=== PATIENT | female | born 1965 | race Caucasian/White ===

== ENCOUNTER 2017-11-04 12:08 | Emergency (ER) | payer BC, OTHER, SELFPAY ==
[2017-11-04] MEDS ORDERED: Ketorolac Tromethamine 30 MG/ML VIAL ONE (13:38)
--- NOTE | 2017-11-04 14:38 | RAD ---
4 VIEWS RIGHT KNEE: Date: 11/04/17 HISTORY: Pain. COMPARISON: 02/01/13. FINDINGS: Evidence of previous internal fixation hardware. Old, healed right femur fracture is noted. No signif icant joint effusion. Joint spaces are preserved. No fracture or malalignment. With regard to the hardware, no evidence of perihardware lucency. IMPRESSION: 1. Uncomplicated internal fixation hardware. 2. No fracture. POS: [facility]
== END 2017-11-04 14:15 | disposition home or self-care (01) ==
LOC: ERS 12:08
DX: M25.461 Effusion, right knee (principal); I48.91 Unspecified atrial fibrillation; J42 Unspecified chronic bronchitis; I45.6 Pre-excitation syndrome; F41.9 Anxiety disorder, unspecified; Z79.899 Other long term (current) drug therapy
CPT/HCPCS: 96372; J1885

== ENCOUNTER 2018-01-07 19:54 | Emergency (ER) | payer BC, OTHER, SELFPAY ==
[2018-01-07 20:42] LABS: #Basophils 0.1 thou/uL (0.0-0.2); #Lymphocytes 1.2 thou/uL (1.20-3.40); #Monocytes 0.5 thou/uL (0.11-0.59); #Neutrophils 2.7 thou/uL (1.40-6.50); %Basophils 1.4 % (0.0-1.0); %Lymphocytes 26.4 % (21.0-51.0); %Monocytes 10.8 % (0.0-10.0); %Neutrophils 60.4 % (42.0-75.0); Hemoglobin 16.3 g/dL (12.0-16.0); Mean Corpuscular Hemoglobin 36.1 pg (27.0-31.0); Mean Platelet Volume 7.7 fL (7.4-10.4); Platelet Count 136 thou/uL (130-400); RBC Distribution Width 11.9 % (11.5-14.5); Red Blood Cell (RBC) Count 4.52 mill/uL (4.20-5.40); White Blood Cell (WBC) Count 4.5 thou/uL (4.8-10.8)
[2018-01-07 20:58] LABS: ALT (SGPT) 69 U/L (8-55); AST (SGOT) 87 U/L (5-34); Acetaminophen Less than 6.0 mcg/mL (10.0-30.0); Albumin 3.9 g/dL (3.5-5.0); Alcohol 178 mg/dL (Less than 10); Alkaline Phosphatase 76 U/L (40-150); Anion Gap 17 mmol/L (10-20); BUN (Urea Nitrogen) 9 mg/dL (7.0-18.7); Bilirubin, Total 0.7 mg/dL (0.2-1.2); Calc. Creatinine Clearance 0 mL/min (70-130); Calcium 9.1 mg/dL (7.8-10.44); Carbon Dioxide 22 mmol/L (22-29); Chloride 109 mmol/L (98-107); Estimated GFR-MDRD 84; Globulin 3.2 g/dL (2.4-3.5); Glucose 155 mg/dL (70-105); Potassium 4.1 mmol/L (3.5-5.1); Protein, Total 7.1 g/dL (6.0-8.3); Salicylate Less than 8.0 mg/dL (15.0-30.0); Sodium 144 mmol/L (136-145)
[2018-01-07 21:19] LABS: Magnesium 1.9 mg/dL (1.6-2.6); Phosphorus 2.6 mg/dL (2.3-4.7)
[2018-01-07 23:35] LABS: Bilirubin Negative (Negative); Blood, Urine Negative (Negative); Clarity CLEAR (Clear); Glucose, Urine (Dipstick) Negative (Negative); Leukocyte Negative (Negative); Nitrite Negative (Negative); Protein, Urine (Dipstick) Negative (Neg-Trace); Specific Gravity, Urine 1.013 (1.002-1.036)
[2018-01-07 23:42] LABS: Anion Gap 14 mmol/L (10-20); BUN (Urea Nitrogen) 8 mg/dL (7.0-18.7); Calc. Creatinine Clearance 0 mL/min (70-130); Calcium 8.6 mg/dL (7.8-10.44); Carbon Dioxide 24 mmol/L (22-29); Chloride 111 mmol/L (98-107); Estimated GFR-MDRD Greater than 90; Glucose 134 mg/dL (70-105); Magnesium 1.7 mg/dL (1.6-2.6); Potassium 4.1 mmol/L (3.5-5.1); Sodium 145 mmol/L (136-145)
[2018-01-08 02:47] LABS: Amphetamine Not Detected (NotDetected); Barbiturates Screen Not Detected (NotDetected); Benzodiazepine Screen Not Detected (NotDetected); Cocaine Metabolite Screen Not Detected (NotDetected); Medtox Control Line Valid? VALID (VALID); Medtox Reader # READER 4; Methadone Not Detected (NotDetected); Methamphetamine Not Detected (NotDetected); Opiate Screen Not Detected (NotDetected); Oxycodone Screen Not Detected (NotDetected); Phencyclidine (PCP) Not Detected (NotDetected); THC/Cannabinoid Screen Not Detected (NotDetected); Tricyclic Screen Not Detected (NotDetected)
--- NOTE | 2018-02-02 15:56 | EKG ---
Test Reason : SI Blood Pressure : / mmHG Vent. Rate : 120 BPM Atrial Rate : 120 BPM P-R Int : 160 ms QRS Dur : 070 ms QT Int : 324 ms P-R-T Axes : 056 014 016 degrees QTc Int : 457 ms Sinus tachycardia Otherwise normal ECG Confirmed by JOVANNI TOLEDO, KADEN ([id number]), acquisitions editor ROXANN GODOY ([id number]) on 02/02/2018 3:56:08 PM Referred By: Confirmed By:KADEN BAIG MD
--- NOTE | 2018-02-02 15:56 | EKG ---
Test Reason : Blood Pressure : / mmHG Vent. Rate : 118 BPM Atrial Rate : 118 BPM P-R Int : 148 ms QRS Dur : 074 ms QT Int : 332 ms P-R-T Axes : 057 013 022 degrees QTc Int : 465 ms Sinus tachycardia Otherwise normal ECG Confirmed by JOVANNI TOLEDO, KADEN ([id number]), research editor ROXANN GODOY ([id number]) on 02/02/2018 3:56:06 PM Referred By: Confirmed By:KADEN BAIG MD
== END 2018-01-09 04:41 ==
LOC: ERS 19:54
DX: R45.851 Suicidal ideations (principal); I48.91 Unspecified atrial fibrillation; F41.9 Anxiety disorder, unspecified; Z79.899 Other long term (current) drug therapy
CPT/HCPCS: 36415; 51701; 80053; 80306; 80307; 81003; 82550; 83735; 84100; 84443; 85025; 93005; 96360; 96361; A4353

== ENCOUNTER 2018-11-27 04:04 | Inpatient (IN) | payer BC, OTHER ==
[2018-11-27] MEDS ORDERED: Magnesium 2 GM/50 ML BAG (IN WATER) ONE (04:20)
[2018-11-27] MEDS ORDERED: methylPREDNISolone Sod Succ/PF 125 MG/2 ML VIAL ONE (04:20)
[2018-11-27] MEDS ORDERED: methylPREDNISolone Sod Succ/PF 125 MG/2 ML VIAL IVP SCH (04:30)
[2018-11-27] MEDS ORDERED: Magnesium 2 GM/50 ML 2 GM in Premix Bag 1 BAG IVPB SCH (04:30)
[2018-11-27 04:36] LABS: #Basophils 0.1 thou/uL (0.0-0.2); #Eosinphils 0.6 thou/uL (0.0-0.7); #Lymphocytes 2.1 thou/uL (1.20-3.40); #Monocytes 1.1 thou/uL (0.11-0.59); #Neutrophils 5.7 thou/uL (1.40-6.50); %Basophils 0.6 % (0.0-1.0); %Eosinophils 6.1 % (0.0-10.0); %Monocytes 11.4 % (0.0-10.0); %Neutrophils 59.9 % (42.0-75.0); Hemoglobin 17.6 g/dL (12.0-16.0); Mean Corpuscular HGB CONC 35.5 g/dL (32.0-36.0); Mean Corpuscular Hemoglobin 35.3 pg (27.0-31.0); Mean Corpuscular Volume 99.6 fL (78.0-98.0); Mean Platelet Volume 7.6 fL (7.4-10.4); Platelet Count 178 thou/uL (130-400); RBC Distribution Width 12.2 % (11.5-14.5); Red Blood Cell (RBC) Count 4.99 mill/uL (4.20-5.40); White Blood Cell (WBC) Count 9.5 thou/uL (4.8-10.8)
[2018-11-27 04:56] LABS: CO2 Tension 57.3 mmHg (35.0-45.0)
[2018-11-27 04:58] LABS: Actual Bicarbonate (HCO3a) 24.4 mEq/L (22-28); Base Excess (BEa) -0.2 mEq/L (-2.0 to +3.0); Hemoglobin (Hb) 17.8 g/dL (12.0-16.0); O2 Tension (PaO2) 57.3 mmHg (80.0-100.0)
[2018-11-27 04:59] LABS: Analyzer IN Cardio ER; Calcium, Ionized 1.14 mmol/L (1.12-1.30); Carboxyhemoglobin (COHb) 0.5 gm% (0.0-3.0); Puncture Site LBA
[2018-11-27 04:59] LABS: ALT (SGPT) 38 U/L (8-55); AST (SGOT) 33 U/L (5-34); Albumin 3.8 g/dL (3.5-5.0); Alkaline Phosphatase 87 U/L (40-150); Anion Gap 15 mmol/L (10-20); BUN (Urea Nitrogen) 6 mg/dL (9.8-20.1); Bilirubin, Total 1.4 mg/dL (0.2-1.2); Calc. Creatinine Clearance 0 mL/min (70-130); Calcium 10.2 mg/dL (7.8-10.44); Carbon Dioxide 24 mmol/L (22-29); Chloride 104 mmol/L (98-107); Estimated GFR-MDRD 84; Globulin 3.4 g/dL (2.4-3.5); Glucose 132 mg/dL (70-105); Magnesium 1.3 mg/dL (1.6-2.6); Protein, Total 7.2 g/dL (6.0-8.3); Sodium 139 mmol/L (136-145)
[2018-11-27 05:00] LABS: ALV-art Gradient 70.715 (0-20)
[2018-11-27] MEDS ORDERED: Terbutaline Sulfate 1 MG/ML VIAL SC SCH (05:00)
[2018-11-27] MEDS ORDERED: Terbutaline Sulfate 1 MG/ML VIAL ONE (05:26)
[2018-11-27] MEDS ORDERED: Oseltamivir 75 MG CAP PO SCH (05:45)
[2018-11-27] MEDS ORDERED: cefTRIAXone\\ROCEPHIN 1 GM VIAL ONE (06:33)
[2018-11-27] MEDS ORDERED: Albuterol Sulfate 2.5 mg/3 ml Neb ONE (06:37)
[2018-11-27] MEDS ORDERED: Albuterol Sulfate 2.5 mg/0.5 ml Neb ONE (06:37)
--- NOTE | 2018-11-27 08:03 | RAD ---
AP CHEST: History: Shortness of breath. Date: 11-27-18 Comparison: 01-27-17 FINDINGS: There is mild cardiomegaly. Mild pulmonary vascular congestion seen. No evidence of effusions, pneumo maryuri, or pneumothorax seen. IMPRESSION: Unremarkable AP view chest. POS: [facility]
[2018-11-27 08:46] LABS: Lactic Acid 4.6 mmol/L (0.5-2.2)
[2018-11-27] MEDS ORDERED: Acetaminophen 650 MG Suppository PR PRN (08:53)
[2018-11-27] MEDS ORDERED: Acetaminophen 325 MG TAB PO PRN (08:53)
[2018-11-27 09:00] VITALS: BMI 31.6
[2018-11-27] MEDS: Azithromycin 500 MG in Sodium Chloride 0.9% 250 ML 250 ML IVPB SCH (09:36)
[2018-11-27] MEDS: Enoxaparin Sodium 40 MG/0.4 ML SYRINGE SC SCH (09:36)
--- NOTE | 2018-11-27 13:28 | HP ---
PRIMARY CARE PROVIDER: Dr. Quintin Flynn. CHIEF COMPLAINT: Shortness of breath. HISTORY OF PRESENT ILLNESS: Ms. Fermin is a pleasant 53-year-old lady, who was seen at [facility] on November 27, 2018. She has a history of asthma. She reports that she started having shortness of breath over the last couple of days. She reports chest tightness. She reports nausea, but no vomiting or diarrhea. She reports cough that is productive of whitish sputum. She took six DuoNebs at home, with total relief of symptoms. She therefore came to the emergency room. She also describes wheezing. REVIEW OF SYSTEMS: All other systems reviewed and found to be negative. PAST MEDICAL HISTORY: Chronic bronchitis versus asthma versus chronic obstructive pulmonary disease, Bodne-Txjvjuagk-Cqnwd syndrome, and atrial fibrillation, status post ablation. PAST SURGICAL HISTORY: Ablation for Ssxwg-Tvuuwpcce-Alcea, hysterectomy, orthopedic surgery of the right leg, left oophorectomy, and peritonitis. PSYCHIATRIC HISTORY: Anxiety. SOCIAL HISTORY: The patient reports drinking one or two alcoholic drinks a day. She denies recreational drug use or tobacco use. FAMILY HISTORY: Sister with asthma, mother with lung cancer. ALLERGIES: ADHESIVE TAPE, CODEINE SULFATE, LATEX, LEVOFLOXACIN, MORPHINE, AND SULFA. CURRENT MEDICATIONS: Breo Ellipta 100/25 mcg one puff as needed, Singulair 10 mg daily, ipratropium inhalation as needed, and albuterol inhalation as needed. PHYSICAL EXAMINATION: GENERAL: On examination, Ms. Fermin is awake and alert, not in acute distress. VITAL SIGNS: Blood pressure is 111/63, pulse 114, respiratory rate 17, and oxygen saturation 98% on BiPAP. She is afebrile. EYES: No scleral icterus, no conjunctival pallor. ENT: Moist mucosal membranes, no oropharyngeal erythema or exudates. NECK: Supple, nontender, trachea is midline. RESPIRATORY: Accessory muscles of breathing are active. Chest wall movements are symmetric bilaterally. Lung examination reveals diffuse expiratory wheeze. CARDIOVASCULAR: S1 and S2 are heard, tachycardic and regular. Peripheral pulses palpable. No carotid bruit. No pericardial rub. ABDOMEN: Soft, nontender, bowel sounds heard, no hepatomegaly, no splenomegaly. NEUROLOGIC: Cranial nerves 2 through 12 intact, deep tendon reflexes 2+. MUSCULOSKELETAL: Power is 5/5 in all four extremities. SKIN: No rashes or subcutaneous nodules. LYMPHATIC: No cervical lymphadenopathy. PSYCHIATRIC: Normal mood, normal affect, the patient is oriented to person, place, and time. LABORATORY DATA: Ms. Fermin's labs and investigations were reviewed. I reviewed her electrocardiogram, which shows sinus tachycardia, no ST changes to suggest an acute coronary syndrome. I also reviewed her chest x-ray, which does not show any pulmonary infiltrates. She has normal white count, elevated hemoglobin of 17.6, normal platelet count, normal sodium, normal potassium, normal chloride, normal creatinine, elevated lactic acid level of 2.5, decreased magnesium level of 1.3, elevated total bilirubin of 1.4, otherwise unremarkable comprehensive metabolic profile and normal troponin I of 0.017. Arterial blood gases show a pH 7.40, pCO2 of 57.3, and pO2 of 57.3. ASSESSMENT AND PLAN: Ms. Fermin is a pleasant 53-year-old lady, who was seen at [facility] on November 27, 2018. Her problem list includes: 1. Acute hypoxic and hypercapnic respiratory failure: Most likely secondary to asthma exacerbation versus chronic obstructive pulmonary disease exacerbation. She will be admitted to the hospital for further management including oxygen, steroids, bronchodilators, and antibiotics. She had a negative influenza test in the emergency room. However, emergency room physician felt that this could be a false negative and has initiated the patient on Tamiflu, which I will continue. We will try to wean her off of BiPAP. Pulmonology Service will be consulted for opinion and help with further management. 2. History of atrial fibrillation: The patient is currently in sinus rhythm, with sinus tachycardia. 3. Hypomagnesemia: The patient has received magnesium supplementation. We will recheck magnesium level. 4. Lactic acidosis: Likely secondary to excessive breathing muscle use. We will recheck. 5. Daily alcohol use: We will watch for symptoms of alcohol withdrawal. We will start patient on ASE protocol. Many thanks for allowing me to participate in your patient's care. Please feel free to contact me with any questions or concerns. LEVEL OF RISK: High. LEVEL OF COMPLEXITY: High. Job ID: [id number]
[2018-11-27] MEDS: Acetaminophen 325 MG TAB PO SCH ×2 (17:26→20:46)
[2018-11-27] MEDS: Oseltamivir 75 MG CAP PO SCH (20:46)
[2018-11-27] MEDS: Temazepam 15 MG CAP PO PRN (22:31)
--- NOTE | 2018-11-28 00:10 | CON ---
DATE OF CONSULTATION: 11/27/2018 HISTORY OF PRESENT ILLNESS: Ms. Fermin is a 53-year-old female, seen by Dr. Juan in the past and she has long history of asthma. She presents with several days of shortness of breath. She is unclear what the trigger was. She denies having high fever, purulent sputum, or hemoptysis. PAST MEDICAL HISTORY: Remarkable for; 1. Reactive airways. 2. WPW. 3. Atrial fibrillation with history of an ablation. 4. Status post hysterectomy. 5. History of right lower extremity surgery in the past. 6. History of peritonitis. 7. History of an oophorectomy. SOCIAL HISTORY: She drinks in the evening. She does not use drugs, she does not smoke. FAMILY HISTORY: With asthma. Her mother of lung cancer. Now she has been told she has adult-onset asthma. ALLERGIES: SHE REPORTS ALLERGIES TO TAPE, CODEINE, LATEX, LEVAQUIN, MORPHINE, AND SULFA. MEDICATIONS: Prior to admission, she was on Breo, Singulair, and she has a nebulizer at home. She says she was on Spiriva, but this was stopped early last year. REVIEW OF SYSTEMS: Ten point review of systems completed, otherwise negative. PHYSICAL EXAMINATION: GENERAL: She says she is feeling better, but she is not well. VITAL SIGNS: She got a temp of 99.6 at noon, heart rate 110 to 120, respiratory rate 20s, oximetry is 95% to 97% on 3 L, blood pressure 129/68. HEENT: Head and neck exam is unremarkable. She has no cervical lymphadenopathy. NECK: Supple. LUNGS: Remarkable for diffuse wheezes. HEART: Regular rhythm. Rapid rate. No gallop. No murmur. ABDOMEN: Soft and nontender. No masses or organomegaly. EXTREMITIES: Without clubbing, cyanosis, or edema. Chest radiograph does not show any alveolar infiltrates suggestive of pneumonia. IMPRESSION: Asthma exacerbation. The trigger is unclear, although statistically it is likely to be a viral illness. She is complaining of chest pain with a deep breath and chest wall tenderness near costochondral margins. I suspect this is asthma triggered by viral illness with associated costochondritis. Tylenol was started. She will continue with her other medications, she will need to know whether or not she should restart Spiriva. This would not be unreasonable when she is going home, but she is getting nebulized treatments every 4 hours right now, so there is really no reason to add Spiriva. Antibiotic microbial therapy could be switched to p.o. antimicrobials in the morning. TIME SPENT: This was a 70-minute consult, with greater than 50% of time spent on the unit coordinating care. Job ID: [id number] MTDD
[2018-11-28] MEDS: Acetaminophen 325 MG TAB PO SCH ×6 (00:35→21:04)
[2018-11-28 04:33] LABS: #Lymphocytes 0.7 thou/uL (1.20-3.40); #Monocytes 0.4 thou/uL (0.11-0.59); #Neutrophils 9.6 thou/uL (1.40-6.50); %Basophils 0.2 % (0.0-1.0); %Eosinophils 0.1 % (0.0-10.0); %Lymphocytes 6.6 % (21.0-51.0); %Monocytes 3.8 % (0.0-10.0); %Neutrophils 89.3 % (42.0-75.0); Mean Corpuscular HGB CONC 35.2 g/dL (32.0-36.0); Mean Corpuscular Hemoglobin 35.5 pg (27.0-31.0); Mean Platelet Volume 8.6 fL (7.4-10.4); Platelet Count 150 thou/uL (130-400); RBC Distribution Width 12.1 % (11.5-14.5); Red Blood Cell (RBC) Count 4.49 mill/uL (4.20-5.40); White Blood Cell (WBC) Count 10.8 thou/uL (4.8-10.8)
[2018-11-28 04:44] LABS: Anion Gap 10 mmol/L (10-20); BUN (Urea Nitrogen) 7 mg/dL (9.8-20.1); Calc. Creatinine Clearance 131 mL/min (70-130); Calcium 9.1 mg/dL (7.8-10.44); Carbon Dioxide 24 mmol/L (22-29); Chloride 106 mmol/L (98-107); Estimated GFR-MDRD 90; Glucose 211 mg/dL (70-105); Magnesium 2.3 mg/dL (1.6-2.6); Potassium 4.4 mmol/L (3.5-5.1); Sodium 136 mmol/L (136-145)
[2018-11-28] MEDS ORDERED: cefTRIAXone\\ROCEPHIN 1 GM in Sodium Chloride 0.9% 100 ML IVPB SCH (07:00)
[2018-11-28] MEDS: Azithromycin 500 MG in Sodium Chloride 0.9% 250 ML 250 ML IVPB SCH (08:46)
[2018-11-28] MEDS: Enoxaparin Sodium 40 MG/0.4 ML SYRINGE SC SCH (08:47)
[2018-11-28] MEDS: Oseltamivir 75 MG CAP PO SCH ×2 (08:47→21:06)
[2018-11-28] MEDS ORDERED: predniSONE 20 MG TAB PO SCH (11:15)
--- NOTE | 2018-11-28 12:03 | PRG ---
DATE OF SERVICE: 11/28/2018 SERVICE: Pulmonary Medicine. INTERVAL HISTORY: The patient is doing fine from respiratory standpoint. If anything, she is not a complete 180. She is breathing much more comfortably and talking in full sentences. Denies any current chest pain, fevers, chills, nausea, or vomiting. Otherwise, there has been no interval change to her condition. PHYSICAL EXAMINATION: VITAL SIGNS: Afebrile, pulse 133, blood pressure 114/56, respirations 28, saturation 99% on room air. GENERAL: The patient is awake and alert, in no apparent distress. LUNGS: Decent air entry. Wheezing is present. There is a slightly prolonged expiratory phase. Rhonchi are there, but clear with cough. There is no crackles appreciated. HEART: Tachycardic. Regular. ABDOMEN: Soft, nontender, and nondistended. Bowel sounds are positive. MUSCULOSKELETAL: No cyanosis or clubbing. There is no pitting in the bilateral lower extremities. NEUROLOGIC: Grossly nonfocal. LABORATORY DATA: WBC 10.8, hemoglobin 16.0, platelets 150,000. Basic metabolic profile is otherwise unremarkable. Anion gap has returned to normal. Magnesium 2.3. Blood cultures x2 are unremarkable. Influenza A and B are negative. IMAGING: Chest x-ray demonstrates no acute cardiopulmonary abnormality. ASSESSMENT: 1. Acute hypoxic and hypercapnic respiratory failure. 2. Asthma with acute exacerbation, improving. 3. Obstructive sleep apnea, suspected. DISCUSSION AND PLAN: We will switch her over to p.o. prednisone. Azithromycin and Rocephin will be converted over to p.o. medication. Pulmonary Critical Care will continue to follow along for the time being. I will do a respiratory virus panel. If influenza is negative on the PCR, Tamiflu can be interrupted. Job ID: [id number]
--- NOTE | 2018-11-28 15:41 | PDOC.PN ---
- Subjective Encounter Start Date: 11/28/18 Encounter Start Time: 08:40 Pt seen for followup re: aqcute hypoxic respiratory failure. Feels better. - Objective Vital Signs & Weight: Vital Signs (12 hours) Temp Pulse Resp BP Pulse Ox 11/28/18 15:16 98.8 F 127 H 24 H 124/75 98 11/28/18 13:52 126 H 18 97 11/28/18 11:00 98.8 F 133 H 28 H 114/56 L 99 11/28/18 09:43 129 H 16 98 11/28/18 08:00 99 11/28/18 07:15 98.3 F 128 H 18 121/72 100 11/28/18 06:05 117 H 16 99 11/28/18 03:50 98.6 F 108 H 18 115/65 99 Weight Weight 194 lb 3.2 oz I&O: 11/27/18 11/28/18 11/29/18 06:59 06:59 06:59 Intake Total 960 Balance 960 Result Diagrams: 11/28/18 03:54 11/28/18 03:54 Phys Exam - Physical Examination Obese HEENT: moist MMs, sclera anicteric, oral pharynx no lesions, 2+ tonsils Neck: no nodes, no JVD, supple, full ROM Respiratory: wheezing present Cardiovascular: RRR, no rub S1, s2 Gastrointestinal: soft, non-tender, no distention, positive bowel sounds Neurological: moves all 4 limbs Psychiatric: normal affect, A&O x 3 Dx/Plan (1) Acute respiratory failure with hypoxia and hypercapnia Code(s): J96.01 - ACUTE RESPIRATORY FAILURE WITH HYPOXIA; J96.02 - ACUTE RESPIRATORY FAILURE WITH HYPERCAPNIA Status: Acute Comment: Improving (2) Asthma exacerbation Code(s): J45.901 - UNSPECIFIED ASTHMA WITH (ACUTE) EXACERBATION Status: Acute Comment: continue oxygen, steroids, bronchodilators and antibiotics. Pt has improved significantly. - Plan * . Review of Systems - Review of Systems Constitutional: negative: fever, chills, sweats, weakness, malaise Respiratory: Cough, Sputum, Wheezing. negative: Dry, Shortness of Breath, Hemoptysis, SOB with Excertion, Pleuritic Pain Cardiovascular: negative: chest pain, palpitations, orthopnea, paroxysmal nocturnal dyspnea, edema, light headedness Gastrointestinal: negative: Nausea, Vomiting, Abdominal Pain, Diarrhea, Constipation, Melena, Hematochezia Genitourinary: negative: Dysuria, Frequency, Incontinence, Hematuria, Retention - Medications/Allergies Allergies/Adverse Reactions: Allergies Allergy/AdvReac Type Severity Reaction Status Date / Time banana Allergy Severe Anaphylaxis Verified 11/27/18 10:02 peach Allergy Severe Anaphylaxis Verified 11/27/18 10:02 plum Allergy Severe Anaphylaxis Verified 11/27/18 10:02 codeine Allergy Intermediate Hives Verified 11/27/18 10:02 adhesive Allergy Verified 11/27/18 10:02 amoxicillin trihydrate Allergy Verified 11/27/18 10:02 [From Augmentin] apricot Allergy Hives Verified 11/27/18 10:02 avocado Allergy Verified 11/27/18 10:02 latex Allergy Verified 11/27/18 10:02 levofloxacin [From Levaquin] Allergy Verified 11/27/18 10:02 paul Allergy Hives Verified 11/27/18 10:02 morphine Allergy Hives Verified 11/27/18 10:02 papaya Allergy Verified 11/27/18 10:02 potassium clavulanate Allergy Verified 11/27/18 10:02 [From Augmentin] strawberry Allergy Hives Verified 11/27/18 10:02 HONEYDEW MELON Allergy Intermediate Hives Uncoded 11/27/18 10:02 [place] Allergy Uncoded 11/27/18 10:02 Medications: Current Medications Acetaminophen (Tylenol) 650 mg SC Q4H PRN PRN Reason: Headache/Fever/Mild Pain (1-3) Acetaminophen (Tylenol) 650 mg PO Q4HR [facility] Last Admin: 11/28/18 13:54 Dose: 650 mg Albuterol/Ipratropium (Duoneb) 3 ml NEB Q4H PRN PRN Reason: SOB &/or Wheezing Albuterol/Ipratropium (Duoneb) 3 ml NEB [id number] [facility] Last Admin: 11/28/18 13:52 Dose: 3 ml Azithromycin (Zithromax) 250 mg PO DAILY [facility] Stop: 12/02/18 09:01 Cefdinir (Omnicef) 300 mg PO BID [facility] Stop: 12/02/18 21:01 Enoxaparin Sodium (Lovenox) 40 mg SC 0900 [facility] Last Admin: 11/28/18 08:47 Dose: 40 mg Oseltamivir Phosphate (Tamiflu) 75 mg PO BID [facility] Stop: 12/02/18 09:01 Last Admin: 11/28/18 08:47 Dose: 75 mg Prednisone (Prednisone) 40 mg PO QAM-WM [facility] Stop: 12/11/18 08:01 Temazepam (Restoril) 15 mg PO HSPRN PRN PRN Reason: Insomnia Last Admin: 11/27/18 22:31 Dose: 15 mg
[2018-11-28] MEDS: Temazepam 15 MG CAP PO PRN (21:04)
[2018-11-28] MEDS: Cefdinir 300 MG CAP PO SCH (21:04)
[2018-11-29] MEDS: Benzonatate 100 MG CAP PO PRN ×2 (00:01→08:03)
[2018-11-29] MEDS: Acetaminophen 325 MG TAB PO SCH ×5 (00:03→16:38)
[2018-11-29] MEDS ORDERED: predniSONE 20 MG TAB PO SCH (08:00)
[2018-11-29] MEDS: Cefdinir 300 MG CAP PO SCH (08:02)
[2018-11-29] MEDS: Enoxaparin Sodium 40 MG/0.4 ML SYRINGE SC SCH (08:04)
[2018-11-29] MEDS: Oseltamivir 75 MG CAP PO SCH (08:08)
[2018-11-29] MEDS ORDERED: Escitalopram Oxalate 20 mg Tablet PO SCH (09:00)
[2018-11-29] MEDS ORDERED: Azithromycin 250 MG TAB PO SCH (09:00)
[2018-11-29] MEDS ORDERED: Montelukast Sodium 10 mg Tablet PO SCH ×2 (09:00→21:00)
--- NOTE | 2018-11-29 09:17 | PRG ---
DATE OF SERVICE: 11/29/2018 SERVICE: Pulmonary Medicine. INTERVAL HISTORY: The patient is doing really well from respiratory standpoint. She continues to have a cough, but not bringing up much phlegm anymore. She has much improved shortness of breath. She denies any current fevers, chills, nausea, or vomiting. Otherwise, there has been no interval change to her condition. She is hoping to go home either today or tomorrow. For some reason, she is not on her Singulair, which is going to be resumed today. Just about her Breo, which is not currently indicated. PHYSICAL EXAMINATION: VITAL SIGNS: Afebrile, pulse 114, blood pressure 129/59, respirations 20, and saturation 96% on room air. GENERAL: The patient is awake and alert, in no apparent distress. LUNGS: Much improved air entry. There is a slightly prolonged expiratory phase. Minimal wheezing and rhonchi are present, which is a vast improvement compared to prior. HEART: Normal rate and regular. ABDOMEN: Soft, nontender, and nondistended. Bowel sounds are positive. MUSCULOSKELETAL: No cyanosis or clubbing. There is no pitting in the bilateral lower extremities. NEUROLOGIC: Grossly nonfocal. LABORATORY DATA: Respiratory virus panel was completely unremarkable. ASSESSMENT: 1. Acute hypoxic and hypercapnic respiratory failure, improving. 2. Asthma with acute exacerbation, resolved. 3. Obstructive sleep apnea, suspected. DISCUSSION AND PLAN: We will continue our prednisone, azithromycin, and Rocephin. From my perspective, the patient is stable for transition out of the hospital. If she remains in-house, we will resume her Singulair at night. Tamiflu will be interrupted as her respiratory virus panel was negative for influenza, and her flu A and B were also unremarkable. I will have her return to clinic to see me in a couple of weeks in the outpatient setting. Job ID: [id number]
[2018-11-29 12:45] VITALS: BP 134/69; TEMP 98.7
--- NOTE | 2018-11-30 06:47 | DIS ---
DATE OF ADMISSION: 11/27/2018 DATE OF DISCHARGE: 11/29/2018 DIAGNOSES AT THE TIME OF DISCHARGE: 1. Acute hypoxic and hypercapnic respiratory failure, improved. 2. Asthma with acute exacerbation, resolved. 3. Obstructive sleep apnea, suspected. CONSULTANTS: Dr. Jaun and Dr. Campos from Pulmonary Services. HOSPITAL COURSE: The patient is a 53-year-old female who presented to the emergency room on the 27 November 2018, with complaints of shortness of breath. She has a history of asthma. She noticed that her shortness of breath started 2 days ago and got gradually better. She had some chest tightness. She reported nausea. No vomiting or diarrhea. She had cough productive of whitish sputum. She took 6 DuoNebs at home and then she came to the emergency room looking for more help. At the time of emergency room visit, her pulse was 114, respiratory rate was 17, oxygen saturation 98 on BiPAP. She was afebrile. Her hemoglobin was 17.6, white count was normal, normal platelet count. Normal chemistry. Lactic acid was elevated at 2.5. Magnesium was about 1.3, total bilirubin was 1.4. Troponin I was 0.017. ABGs showed pH of 7.4, pCO2 of 57.3, pO2 of 57.3. She got admitted to the hospital. She was placed on oxygen, steroids, bronchodilator, and antibiotic. She had negative influenza test, but she was started on Tamiflu since the test could be negative. The Pulmonary presales consultant was asked to see her and the patient was seen by Dr. Campos, who recommended to continue nebulized treatments with DuoNebs every 4 hours and switch her to oral antibiotic the next day. The patient was on Omnicef, azithromycin, and prednisone. She did well. PHYSICAL EXAMINATION: VITAL SIGNS: Blood pressure is 129/59. Her pulse oximetry is 93% on room air. Pulse is 89, temperature 98.6, and respirations 18. LUNGS: She has few wheezes at both bases, but mainly on the right side. HEART: S1 and S2 normal. ABDOMEN: Soft and nontender. For the followup pulmonology evaluation, she was seen by Dr. Juan who recommended to send her home on a tapered dose of prednisone, cefdinir, and azithromycin. She received 1 dose of each and was discharged home in good condition with recommendation to stay on heart-healthy diet. ACTIVITIES: As tolerated. DISCHARGE MEDICATIONS: Her medications at the time of discharge; 1. Prednisone 40 mg, which is two tablets of 20 mg each, for the next 3 days, then 1-1/2 tablet which is 30 mg for the next 3 days daily, then 1 tablet for the next 3 days daily, and 1/2 tablet for the next 3 days daily. 2. She will continue cefdinir mg twice a day for 10 days. 3. Azithromycin for the next 4 days, 250 mg once a day. 4. DuoNeb p.r.n. 5. She will continue on Singulair 10 mg at bedtime. She will follow up with Dr. Juan in 2 weeks. The patient was seen and examined before she is discharged. TIME SPENT: Discharge time is less than 30 minutes. Job ID: [id number]
== END 2018-11-29 17:47 | disposition home or self-care (01) | DRG 189 ==
LOC: ERS 04:04 → IMCU/EMU 08:42 → ONC 11-28 18:35
PROVIDERS: ADMIT Internal Medicine; ATTEND Internal Medicine
DX: J96.01 Acute respiratory failure with hypoxia (principal); J45.901 Unspecified asthma with (acute) exacerbation; E87.2 Acidosis; J96.02 Acute respiratory failure with hypercapnia; G47.33 Obstructive sleep apnea (adult) (pediatric); E83.42 Hypomagnesemia; F10.10 Alcohol abuse, uncomplicated
CPT/HCPCS: 36415; 71045; 80048; 80053; 82805; 83605; 83735; 83880; 84484; 85025; 87040; 87633; 87798; 87804; 93005; 94640; 94660; 96365; 96367; 96372; 96375; J0456; J0696; J1650; J2920; J2930; J3105; J7050; J7506; J7611; J7620

== ENCOUNTER 2019-10-17 09:54 | Outpatient (CLI) | payer BC ==
--- NOTE | 2019-10-17 11:31 | CT ---
Exam: Chest CT scan without IV contrast: HISTORY: History lung nodule, asthma COMPARISON: CT angiogram chest 12/23/2016, chest CT without contrast, 03/26/2016 FINDINGS: There is a stable 0.8 cm nodule in the lingula. Minimal pleural-based parenchymal changes are noted i n the lingula and right middle lobe with improvement in the appearance of the right middle lobe parenchymal changes from 03/26/2016. Minimal scattered linear parenchymal changes bilaterally having mo re chronic appearance with some minimal pleural-based chronic change. No mediastinal mass or adenopathy. Irregular fatty changes in the liver with some fatty sparing adjacent to the gallbladder. Varices in the upper abdomen and left upper quadrant evidence for portal hypertension. 0.7 cm diameter nonobstructing left renal calculus. Upper range of normal spleen size. No pleural or pericardial effusion. No mediastinal mass or adenopathy. IMPRESSION: Stable lingular nodule. Minimal scattered chronic lung changes. Previously noted pleural-based parenchymal density in the right middle lobe has considerably improved in appearance. Marked fatty changes in the liver with some fatty sparing with evidence for portal hypertension.
== END 2019-10-17 09:55 | disposition home or self-care (01) ==
LOC: BICCT 09:54
PROVIDERS: ATTEND Internal Medicine
DX: J45.909 Unspecified asthma, uncomplicated (principal); R91.1 Solitary pulmonary nodule; K76.6 Portal hypertension; R91.8 Other nonspecific abnormal finding of lung field
CPT/HCPCS: 71250

== ENCOUNTER 2020-02-21 22:01 | Inpatient (IN) | payer BC, SELFPAY ==
[~2020-02-21 22:01] MED LIST: Iopamidol 370 76% 100 ML VIAL ONE
[2020-02-21] MEDS ORDERED: HYDROmorphone 0.5 MG/0.5 ML SYRINGE ONE (23:00)
[2020-02-21] MEDS ORDERED: Ondansetron PF 4 MG/2 ML Vial ONE ×2 (23:00→23:51)
[2020-02-21 23:05] LABS: #Basophils 0.1 thou/uL (0.0-0.2); #Eosinphils 0.1 thou/uL (0.0-0.7); #Lymphocytes 1.4 thou/uL (1.20-3.40); #Monocytes 0.9 thou/uL (0.11-0.59); #Neutrophils 6.4 thou/uL (1.40-6.50); %Basophils 0.6 % (0.0-1.0); %Eosinophils 0.7 % (0.0-10.0); %Lymphocytes 15.8 % (21.0-51.0); %Monocytes 10.5 % (0.0-10.0); %Neutrophils 72.4 % (42.0-75.0); Hemoglobin 17.1 g/dL (12.0-16.0); Mean Corpuscular HGB CONC 35.8 g/dL (32.0-36.0); Mean Corpuscular Hemoglobin 35.6 pg (27.0-31.0); Mean Corpuscular Volume 99.5 fL (78.0-98.0); Mean Platelet Volume 7.3 fL (7.4-10.4); Platelet Count 194 thou/uL (130-400); RBC Distribution Width 12.5 % (11.5-14.5); Red Blood Cell (RBC) Count 4.79 mill/uL (4.20-5.40); White Blood Cell (WBC) Count 8.9 thou/uL (4.8-10.8)
[2020-02-21 23:23] LABS: ALT (SGPT) 20 U/L (8-55); AST (SGOT) 28 U/L (5-34); Alkaline Phosphatase 90 U/L (40-110); Anion Gap 15 mmol/L (10-20); BUN (Urea Nitrogen) 9 mg/dL (9.8-20.1); Bilirubin, Total 2.1 mg/dL (0.2-1.2); Calc. Creatinine Clearance 0 mL/min (70-130); Calcium 10.1 mg/dL (7.8-10.44); Carbon Dioxide 21 mmol/L (22-29); Chloride 106 mmol/L (98-107); Estimated GFR-MDRD 88; Globulin 3.3 g/dL (2.4-3.5); Glucose 135 mg/dL (70-105); Lipase 16 U/L (8-78); Potassium 3.8 mmol/L (3.5-5.1); Protein, Total 7.3 g/dL (6.0-8.3); Sodium 138 mmol/L (136-145)
[2020-02-21 23:31] LABS: Bilirubin Negative (Negative); Blood, Urine Negative (Negative); Clarity Turbid (Clear); Glucose, Urine (Dipstick) Normal (Negative); Leukocyte 500 Leu/uL (Negative); Nitrite Negative (Negative); Protein, Urine (Dipstick) 30 mg/dL (Neg-Trace); RBC/HPF 0-3 HPF (0-3); Urobilinogen 3 mg/dL (Less than 2); WBC/HPF Greater than 50 HPF (0-3)
[2020-02-21 23:32] LABS: Bacteria/HPF 1+ HPF (None Seen)
--- NOTE | 2020-02-21 23:50 | CT ---
CT Abdomen Pelvis W Con History: Abdominal pain Comparison: CT abdomen and pelvis 2017 Findings: Lung bases are clear. No pericardial effusion. High-grade small bowel obstruction with holt sition point in the right upper quadrant the abdomen a thick-walled loop of bowel the liver coronal image 38. There is extensive visualization of small bowel contents just proximal to this high-grade n arrowing. Abnormal intermesenteric fluid in the right upper quadrant. No free air is appreciated. Spleen is mildly enlarged. Splenic vein is dilated. The aortoiliac contour is nonaneurysmal. In the right interpolar collecting system is a 9 mm calculus . The left interpolar renal collecting system is an 8 mm calculus. No acute osseous abnormality. Pancreas is unremarkable. Incidental note is made of a splenule. Impression: 1. Relatively high-grade small bowel obstruction involving the ilium with transition point right uppe r quadrant of the abdomen coronal image 38 adjacent to the liver. There is moderate volume fluid in the small bowel mesentery suggesting fluid transudation and loss of bowel wall integrity. Surgical co nsultation advised. Next and 2. Splenomegaly with dilated ectatic splenic vein suggesting portal hypertension. There is also rosi l systemic collaterals with the splenic vein and the left renal vein. 3. Nonobstructive bilateral interpolar renal calculi relatively similar to 2017.
[2020-02-21] MEDS ORDERED: Piperacillin/Tazobactam 4.5 GM VIAL ONE (23:58)
[2020-02-22] MEDS ORDERED: Benzocaine 20% Spray 60 ML CAN ONE (00:15)
[2020-02-22] MEDS ORDERED: Ondansetron PF 4 MG/2 ML Vial IVP PRN ×3 (01:32→14:18)
[2020-02-22] MEDS ORDERED: Acetaminophen 650 MG Suppository PR PRN (01:32)
[2020-02-22] MEDS ORDERED: diphenhydrAMINE 50 MG/ML VIAL IVP PRN ×2 (01:37→12:12)
[2020-02-22] MEDS ORDERED: Dextrose 5% in Water 1,000 ML IV PRN (01:42)
[2020-02-22] MEDS ORDERED: Dextrose 50% Abboject 50 ML SYRINGE SLOW IVP PRN (01:42)
[2020-02-22] MEDS ORDERED: HumaLOG 300 UNITS/3 ML VIAL SC PRN (01:42)
[2020-02-22] MEDS ORDERED: Sodium Chloride 0.9% 1,000 ML IV SCH (01:45)
[2020-02-22] MEDS: Fentanyl 100 MCG/2 ML VIAL SLOW IVP PRN ×3 (02:09→08:35)
--- NOTE | 2020-02-22 02:55 | HP ---
This is ISHAN Goodson dictating a report for Wm Valencia MD. PRIMARY CARE PHYSICIAN: None. CHIEF COMPLAINT: Abdominal pain. HISTORY OF PRESENT ILLNESS: Ms. Fermin is a very pleasant 54-year-old female who comes to the emergency room today with right-sided abdominal pain that started about 11 o'clock this morning and has worsened throughout the day. She reports nausea and vomiting x3. Reports normal BM this morning. She denied any fevers or chills or any URI type symptoms. She reports that she has had multiple abdominal surgeries. It started when she was 4-day-old and she had significant portion of her small bowel removed. Has had hysterectomy, , multiple adhesions removed and has had she believes at least 5 previous small bowel obstructions. She tried hot baths today to try to do with the pain and she reports it has slowed the pain down a little bit and then when she laid flat, she said it got better, but she said the pain continued in waves and when they did not get any better and with her history, she decided to come to the emergency room. CT scan in the emergency room shows relatively high-grade small bowel obstruction involving the ileum with transition point right upper quadrant of the abdomen adjacent to the liver, moderate volume fluid in the small bowel mesentery suggesting fluid transudation and loss of bowel wall integrity. Also, splenomegaly with dilated acoustic splenic vein suggesting portal hypertension. 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 LABORATORY DATA: With a white blood cell count 8.9, hemoglobin 17.1, hematocrit 47.6, and platelet count 194. Total bilirubin 2.1, otherwise largely unremarkable. Urine is turbid, positive for leukocyte esterase, white blood cells, squamous and 1+ bacteria and that has been sent off for culture. General Surgery, Dr. Colon, was consulted from the emergency room per notes and he ask that she be admitted and he will see her in the morning. ER also placed an NG tube to intermittent suction and she will be admitted to the surgical unit for further management. REVIEW OF SYSTEMS: The patient reports abdominal pain. Reports nausea, vomiting. Denies diarrhea. Denies fever or chills. Denies any chest pain, shortness of breath. All systems reviewed and negative unless mentioned in HPI or above. PAST MEDICAL HISTORY: Asthma, Hikii-Kxrcqifqo-Awzml syndrome. Has a history of atrial fibrillation, status post ablation. PAST SURGICAL HISTORY: Ablation for Qlrob-Tkkfunodd-Dimsa, hysterectomy, right leg surgery after she broke her femur, left oophorectomy, peritonitis, multiple abdominal surgeries, which started when she was 4-day-old. PSYCHIATRIC HISTORY: Anxiety. SOCIAL HISTORY: She reports that she drinks 1 or 2 alcoholic drinks a day. Denies any drug use, tobacco use. FAMILY HISTORY: Sister with asthma. Mom had lung cancer. ALLERGIES: REPORTED CODEINE, ADHESIVE, MORPHINE, MULTIPLE FRUITS. MEDICATIONS: She takes Singulair 10 mg p.o. daily, Breo 100 mcg/25 mcg one puff daily, Atrovent inhaler daily. PHYSICAL EXAMINATION: VITAL SIGNS: Blood pressure 133/71, pulse is 85, respirations are 18, pO2 sats are 95% on room air. CONSTITUTIONAL: The patient appears nontoxic. She is alert and oriented to person, place, and time. HEENT: Head is atraumatic and normocephalic. Eyes, pupils are equally round and reactive to light. Extraocular muscles are intact. ENT, mouth exam is normal. Mucous membranes are moist. NECK: Normal range of motion. Trachea is midline. RESPIRATORY: Chest breath sounds are clear. Chest expansion is equal. CARDIOVASCULAR: Regular heart rate and rhythm. Heart sounds are normal. ABDOMEN: She has multiple scars of prior surgeries, is markedly tender to right upper quadrant and right lower quadrant. BACK: Normal range of motion. No tenderness. EXTREMITIES: Upper extremities, normal inspection, normal range of motion. Radial pulses are equal. Lower extremity, normal range of motion. Motor strength is normal. Pedal pulses are normal. NEUROLOGIC: Patient is oriented to person, place, and time. PSYCHIATRIC: Has normal affect. ASSESSMENT/PLAN: 1. High-grade small bowel obstruction. General Surgery consultation has been added. Dr. Colon was talked to from the ER. NG tube has been placed. We will continue that to intermittent suction, n.p.o. We will start gentle hydration, normal saline at 75 mL per hour. We started Protonix daily. Pain medication as needed. We will redraw labs in a.m. We will continue the Zosyn q.8 hours as started in the ER. 2. History of asthma. We will restart her home medications once reconciled. 3. Possible urinary tract infection. We sent that off for culture. 4. Deep venous thrombosis prophylaxis started. 5. Case discussed with Dr. Burk who agrees with plan. 6. Hospital course dependent on clinical findings. Job ID: [id number]
[2020-02-22 05:05] LABS: #Basophils 0.1 thou/uL (0.0-0.2); #Eosinphils 0.2 thou/uL (0.0-0.7); #Lymphocytes 1.9 thou/uL (1.20-3.40); #Neutrophils 5.9 thou/uL (1.40-6.50); %Basophils 0.7 % (0.0-1.0); %Eosinophils 2.3 % (0.0-10.0); %Lymphocytes 20.6 % (21.0-51.0); %Monocytes 10.9 % (0.0-10.0); %Neutrophils 65.5 % (42.0-75.0); Hemoglobin 16.4 g/dL (12.0-16.0); Mean Corpuscular HGB CONC 34.7 g/dL (32.0-36.0); Mean Corpuscular Hemoglobin 34.9 pg (27.0-31.0); Mean Platelet Volume 7.8 fL (7.4-10.4); Platelet Count 179 thou/uL (130-400); RBC Distribution Width 12.7 % (11.5-14.5)
[2020-02-22] MEDS: Piperacillin/Tazobactam 4.5 GM in Sodium Chloride 0.9% 100 ML IVPB SCH ×2 (05:18→14:43)
[2020-02-22 05:33] LABS: ALT (SGPT) 17 U/L (8-55); AST (SGOT) 23 U/L (5-34); Albumin 3.6 g/dL (3.5-5.0); Alkaline Phosphatase 80 U/L (40-110); Anion Gap 13 mmol/L (10-20); BUN (Urea Nitrogen) 9 mg/dL (9.8-20.1); Bilirubin, Total 2.1 mg/dL (0.2-1.2); Calc. Creatinine Clearance 118 mL/min (70-130); Calcium 9.2 mg/dL (7.8-10.44); Carbon Dioxide 22 mmol/L (22-29); Chloride 106 mmol/L (98-107); Estimated GFR-MDRD 85; Globulin 3.2 g/dL (2.4-3.5); Glucose 116 mg/dL (70-105); Potassium 3.9 mmol/L (3.5-5.1); Protein, Total 6.8 g/dL (6.0-8.3); Sodium 137 mmol/L (136-145)
--- NOTE | 2020-02-22 08:22 | RAD ---
EXAM: CHEST ONE VIEW HISTORY: Right-sided abdominal pain. Small bowel obstruction. COMPARISON: 11/27/2018 FINDINGS: Cardiac silhouette is magnified by projection but does appear enlarged. Pulmonary vasculature is at t he upper limits of normal. Mild prominence of the perihilar interstitial densities is noted without consolidation or pleural fluid seen. Nasogastric tubes noted in place with tip overlying left upper q uadrant and overlying the expected location of the body of the stomach. Residual contrast is seen in each renal collecting system related to recent contrasted study. Mild right convex curvature of th e thoracic spine is present with mild degenerative changes in the spine. Calcifications overlie the soft tissues lateral left chest. IMPRESSION: 1. Cardiomegaly with mild increase in perihilar interstitial densities. Findings may be related to mi ld pulmonary edema. 2. No consolidation or pleural fluid. 3. Nasogastric tube noted in place.
[2020-02-22] MEDS ORDERED: Pantoprazole 40 MG VIAL IVP SCH (09:00)
[2020-02-22] MEDS ORDERED: Enoxaparin Sodium 40 MG/0.4 ML SYRINGE SC SCH (09:00)
[2020-02-22] MEDS ORDERED: Ipratropium Bromide 2.5 ml Neb NEB SCH (10:00)
[2020-02-22] MEDS ORDERED: Scopolamine 1.5 mg/72 hour Patch ONE (10:03)
--- NOTE | 2020-02-22 10:08 | CON ---
DATE OF CONSULTATION: 02/22/2020 CHIEF COMPLAINT: Small bowel obstructions. HISTORY OF PRESENT ILLNESS: This is a 54-year-old female, who has a history of small bowel obstructions, who presents with a history of nausea, vomiting of bilious material, abdominal pain and distention. She had NG tube placed early this morning. She does not feel any better. She has waves of crampy sharp pain described as 10/10 in the right abdomen. PAST MEDICAL HISTORY: Includes Ykzhl-Sxqbibvlo-Fnwur, treated with ablation; asthma. PAST SURGICAL HISTORY: Includes ablation, hysterectomy, right femur, left oophorectomy. SOCIAL HISTORY: Couple of alcoholic drinks a day. No smoking or other drugs. ALLERGIES: CODEINE, ADHESIVE, MORPHINE, MULTIPLE FRUITS. MEDICATIONS: Singulair, Breo, Atrovent inhaler. REVIEW OF SYSTEMS: 10-system review of systems is otherwise negative unless described above. PHYSICAL EXAMINATION: VITAL SIGNS: Pulse 93, respirations 16, temperature 98.5. HEENT: Sclerae are anicteric. Oropharynx clear. NECK: No lymphadenopathy. CHEST: Clear. HEART: Regular rate. ABDOMEN: Soft. It is tender diffusely with right-sided peritoneal signs. Well-healed midline incision. LABORATORY DATA: White blood cell count is 9, hemoglobin 16, platelet count is 179 creatinine 0.72, potassium 3.9. CT shows high-grade small-bowel obstruction. ASSESSMENT: High-grade small-bowel obstruction. PLAN: Exploratory laparotomy. She could have ischemia given her significant ongoing pain. Risks, benefits, and alternatives discussed. She gives consent. We will do this today. Job ID: [id number]
[2020-02-22] MEDS ORDERED: Fentanyl 100 MCG/2 ML VIAL ONE ×2 (10:09→13:00)
[2020-02-22] MEDS ORDERED: HYDROmorphone 2 MG/ML VIAL ONE (10:09)
[2020-02-22] MEDS ORDERED: Lidocaine 1% PF 5 ML VIAL ONE (10:15)
[2020-02-22] MEDS ORDERED: Succinylcholine Chloride 20 MG/ML 10 ml SYRINGE FS ONE (10:15)
[2020-02-22] MEDS ORDERED: PROPOFOL 200 MG/20 ML VIAL ONE (10:15)
[2020-02-22] MEDS ORDERED: PHENYLEPHRINE-NS 100 MCG/ML 10 ML SYRINGE ONE (10:15)
[2020-02-22] MEDS ORDERED: Rocuronium Bromide 10 MG/ML (10ML VIAL) ONE (10:15)
[2020-02-22] MEDS ORDERED: Ondansetron PF 4 MG/2 ML Vial ONE (10:15)
[2020-02-22] MEDS ORDERED: Dexamethasone 20 MG/5 ML VIAL ONE (10:15)
[2020-02-22] MEDS ORDERED: Glycopyrrolate 0.2 MG/ML 5 ML SYRINGE ONE (10:15)
[2020-02-22] MEDS ORDERED: Ondansetron HCl/PF 4 MG/2 ML Vial IVP PRN (12:12)
[2020-02-22] MEDS ORDERED: Naloxone HCl 0.4 mg/ml Vial IV PRN (12:12)
[2020-02-22] MEDS ORDERED: diphenhydrAMINE 50 MG/ML VIAL IM PRN (12:12)
[2020-02-22] MEDS ORDERED: Zolpidem Tartrate 5 MG TAB PO PRN (12:12)
[2020-02-22] MEDS ORDERED: HYDROmorphone 10 mg/100 ml CADD IVPB PRN ×2 (12:12→13:40)
[2020-02-22] MEDS ORDERED: Promethazine HCl 25 MG/ML VIAL IM PRN ×3 (12:12→14:18)
[2020-02-22] MEDS ORDERED: Promethazine HCl 25 MG/ML VIAL SLOW IVP PRN (12:12)
[2020-02-22] MEDS ORDERED: Communication Order-Pharmacy FS SCH (12:15)
[2020-02-22] MEDS ORDERED: SUGAMMADEX SODIUM 500 MG/5 ML VIAL ONE (12:24)
--- NOTE | 2020-02-22 13:11 | OP ---
DATE OF PROCEDURE: 02/22/2020 PREOPERATIVE DIAGNOSIS: Small-bowel obstruction with peritonitis. POSTOPERATIVE DIAGNOSIS: Small-bowel obstruction with peritonitis. PROCEDURES PERFORMED: 1. Exploratory laparotomy. 2. Extensive lysis of adhesions. 3. Small-bowel resection and anastomosis. ANESTHESIA: General. ESTIMATED BLOOD LOSS: Minimal. COMPLICATIONS: None. SPECIMENS: Small intestine. FINDINGS: Significant intraabdominal adhesion burden. All adhesions to small intestine taken down, so the small bowel was able to run from ileocecal valve to the ligament of Treitz without evidence of obstruction. TECHNIQUE: The patient was taken to the operating room and laid supine on the operating room table. After general anesthetic was obtained, a Coats was placed. The abdomen was prepped and draped in a sterile fashion. Anesthesia upsized the NG tube to a larger one. Midline incision was made. Bookwalter retractor was placed. Multiple adhesions were taken down from posterior abdominal wall without injury. Adhesions were taken down in the entire abdomen. She had adhesions encasing her small bowel from ligament of Treitz to ileocecal valve. There were several areas of grouping of the small bowel due to these adhesions. The adhesions were soft and easy to see through and easy to take down. There were no enterotomies made. In the area of the terminal ileum, there were more dense adhesions, that were taken down and this caused ischemia to a small one in segment of small intestine due to loss of its mesentery. So, small bowel resection was performed in this area using ANKIT-75 staplers for the anastomosis as well as the common enterotomy was closed using running Vicryl suture. All instrument counts, needle counts, lap counts were correct. There was no bleeding in the abdomen. There were no injury to any intraabdominal structures. NG tube was felt to be in good position in the stomach. Seprafilm was placed. Midline fascia was closed using #1 PDS from top and bottom and tied in the middle. Subcutaneous tissues were irrigated and closed using 3-0 Vicryl, 4-0 Monocryl, and Dermabond. The patient was sent to Recovery in stable condition. All instrument counts, needle counts, and lap counts were correct. Job ID: [id number]
--- NOTE | 2020-02-22 14:06 | PDOC.HOSPP ---
- Subjective Encounter Date: 02/22/20 Encounter Time: 09:00 Subjective: overnight, continues to be in severe pain. This morning, complains of severe diffuse abdominal pain even with slight movement on the bed. had two bowel movements, one of them large per nurse. Otherwise no complaints. - Objective Vital Signs & Weight: Vital Signs (12 hours) Temp Pulse Resp BP Pulse Ox 02/22/20 08:30 96 02/22/20 07:45 98.2 F 90 16 129/86 96 02/22/20 03:26 98.5 F 93 16 132/85 94 L Weight Weight 180 lb I&O: 02/21/20 02/22/20 02/23/20 06:59 06:59 06:59 Intake Total 450 Output Total 120 Balance 330 Result Diagrams: 02/22/20 04:46 02/22/20 04:46 Hospitalist ROS - Review of Systems Constitutional: denies: fever, chills, sweats, weakness, malaise, other Respiratory: denies: cough, dry, shortness of breath, hemoptysis, SOB with excertion, pleuritic pain, sputum, wheezing, other Cardiovascular: denies: chest pain, palpitations, orthopnea, paroxysmal noc. dyspnea, edema, light headedness, other Gastrointestinal: reports: nausea, abdominal pain. denies: vomiting, diarrhea, constipation, melena, hematochezia Genitourinary: denies: dysuria, frequency, incontinence, hematuria, retention Neurological: denies: weakness, numbness, incoordination, change in speech, confusion, seizures, other - Medication Medications: Active Medications Generic Name Dose Route Start Last Admin Trade Name Freq PRN Reason Stop Dose Admin Sodium Chloride 1,000 mls @ 75 mls/hr 02/22/20 01:45 02/22/20 02:11 Normal Saline 0.9% IV 1,000 mls .[id number] IRINA Administration Piperacillin Sod/Tazobactam 100 mls @ 200 mls/hr 02/22/20 06:00 02/22/20 05: 18 Sod 4.5 gm/ Sodium Chloride IVPB 100 mls Q8HR IRINA Administration Ondansetron HCl 4 mg 02/22/20 01:32 02/22/20 02:08 Zofran IVP 4 mg Q6H PRN Administration Nausea/Vomiting Pantoprazole Sodium 40 mg 02/22/20 09:00 02/22/20 08:40 Protonix IVP 40 mg DAILY IRINA Administration - Exam General Appearance: ill appearing General - other findings: in apparent distress due to pain ENT: normocephalic atraumatic, moist mucosa Neck: no JVD Heart: RRR, no murmur, no gallops, no rubs, normal peripheral pulses Respiratory: CTAB, no wheezes, no rales, no ronchi, normal chest expansion, no tachypnea, normal percussion Gastrointestinal - other findings: diffusely severely tender, pain with slight change of position in bed Extremities: no edema Neurological: cranial nerve grossly intact, no weakness. negative: facial droop , hemiplegia, speech deficit, vision deficit Psychiatric: normal affect, normal behavior, A&O x 3 Hosp A/P - Plan #high grade small bowel obstruction with peritonitis due to adhesions -pending adhesion lysis and small bowel resection and anastamosis -continue zosyn -rest of management as per surgery #uncomplicated UTI in context of SBO and signfiicant pain, difficult to determine of symptomatic or asymptomatic -urine culture growing e. coli -can continue zosyn pending susceptibilities #history of WPW s/p ablation -per patient, arrhythmia never recurred #asthma -preoperatively breathing and satting well on room air -albuterol inhaler q6h PRN SOB full code GI PPx: pantoprazole DVT PPx: SCDs
[2020-02-22] MEDS ORDERED: hydrALAZINE 20 MG/ML VIAL SLOW IVP PRN (14:18)
[2020-02-22] MEDS ORDERED: Albuterol Sulfate 2.5 mg/3 ml Neb NEB PRN (14:18)
[2020-02-22] MEDS ORDERED: Non-Formulary Item 1 EACH (Fluticasone/Vilanterol [Breo Ellipta] 1 PUFF) PO PRN (14:18)
[2020-02-22] MEDS ORDERED: Mometasone 100 MCG/Formoterol 5 MCG 120 PUFF INHALER INH PRN (14:55)
[2020-02-22] MEDS: Sodium Chloride 0.9% 1,000 ML IV SCH ×2 (17:12→23:14)
[2020-02-22] MEDS: Famotidine/PF 20 mg/2ml Vial SLOW IVP SCH (20:46)
[2020-02-22] MEDS: Montelukast Sodium 10 mg Tablet PO SCH (20:53)
[2020-02-22] MEDS: Famotidine 20 MG TAB PO SCH (20:53)
[2020-02-23 05:42] LABS: Anion Gap 13 mmol/L (10-20); BUN (Urea Nitrogen) 12 mg/dL (9.8-20.1); Calc. Creatinine Clearance 110 mL/min (70-130); Carbon Dioxide 19 mmol/L (22-29); Chloride 113 mmol/L (98-107); Estimated GFR-MDRD 79; Glucose 149 mg/dL (70-105); Magnesium 1.5 mg/dL (1.6-2.6); Potassium 3.8 mmol/L (3.5-5.1); Sodium 141 mmol/L (136-145)
[2020-02-23 06:03] LABS: Hemoglobin 14.8 g/dL (12.0-16.0); Mean Corpuscular HGB CONC 34.1 g/dL (32.0-36.0); Mean Corpuscular Hemoglobin 35.2 pg (27.0-31.0); Mean Platelet Volume 8.6 fL (7.4-10.4); Platelet Count 150 thou/uL (130-400); RBC Distribution Width 12.9 % (11.5-14.5); Red Blood Cell (RBC) Count 4.21 mill/uL (4.20-5.40); White Blood Cell (WBC) Count 12.7 thou/uL (4.8-10.8)
[2020-02-23 06:04] LABS: Band 32 % (5-11); Lymphocytes 7 % (21-51); MDiff Complete? YES; Monocytes 12 % (0-10); Neutrophil 49 % (42-75)
[2020-02-23] MEDS: Sodium Chloride 0.9% 1,000 ML IV SCH ×2 (07:20→20:48)
[2020-02-23] MEDS ORDERED: Magnesium Sulfate 3 GM in Sodium Chloride 0.9% 100 ML IVPB SCH (07:30)
[2020-02-23] MEDS: Montelukast Sodium 10 mg Tablet PO SCH ×2 (08:29→22:16)
[2020-02-23] MEDS: Famotidine/PF 20 mg/2ml Vial SLOW IVP SCH ×2 (08:29→20:48)
[2020-02-23] MEDS: Famotidine 20 MG TAB PO SCH ×2 (08:30→22:16)
--- NOTE | 2020-02-23 09:08 | PRG ---
DATE OF SERVICE: Postop day 1, ex lap lysis of adhesions. SUBJECTIVE: Ms. Fermin is complaining of less crampy pain than she had preop. She is noting significant incisional pain. She has not been out of bed yet. She has no nausea. OBJECTIVE: VITAL SIGNS: She is afebrile. She is 90% on room air. Pulse 113, blood pressure 116/76. NG output, minimal overnight. LABORATORY DATA: Her white blood cell count is 12, hemoglobin 14, platelet count is 150, bands 32. Sodium 141, potassium 3.8, creatinine 0.77, glucose is 149. ASSESSMENT: 1. Postop day one, extensive lysis of adhesions, small-bowel resection anastomosis. 2. Left shift, likely postop acute phase reaction. PLAN: Discontinue NG. Allow ice chips only. She needs to be walking. Start Lovenox this morning. Job ID: [id number]
[2020-02-23] MEDS: Enoxaparin Sodium 40 MG/0.4 ML SYRINGE SC SCH (09:27)
[2020-02-23] MEDS: cefTRIAXone\\ROCEPHIN 1 GM in Sodium Chloride 0.9% 100 ML IVPB SCH (10:06)
[2020-02-23 12:03] VITALS: BMI 30.2
--- NOTE | 2020-02-23 19:33 | PDOC.HOSPP ---
- Subjective Encounter Date: 02/23/20 Encounter Time: 09:00 Subjective: no ovnernight events. This morning, feeling better and has no complaints. - Objective Vital Signs & Weight: Vital Signs (12 hours) Temp Pulse Resp BP Pulse Ox 02/23/20 15:27 99.7 F H 110 H 16 114/78 91 L 02/23/20 11:15 97.3 F L 99 16 113/76 90 L 02/23/20 08:00 90 L 02/23/20 07:36 97.8 F 113 H 16 116/76 89 L Weight Admit Weight 180 lb Weight 181 lb 4.8 oz I&O: 02/22/20 02/23/20 02/24/20 06:59 06:59 06:59 Intake Total 450 510 Output Total 120 740 Balance 330 -230 Result Diagrams: 02/23/20 05:06 02/23/20 05:06 Hospitalist ROS - Review of Systems Constitutional: denies: fever, chills, sweats, weakness, malaise, other Respiratory: denies: cough, dry, shortness of breath, hemoptysis, SOB with excertion, pleuritic pain, sputum, wheezing, other Gastrointestinal: denies: nausea, vomiting, abdominal pain, diarrhea, constipation, melena, hematochezia, other Genitourinary: denies: dysuria, frequency, incontinence, hematuria - Medication Medications: Active Medications Generic Name Dose Route Start Last Admin Trade Name Freq PRN Reason Stop Dose Admin Enoxaparin Sodium 40 mg 02/23/20 09:00 02/23/20 09:27 Lovenox SC 40 mg 0900 IRINA Administration Famotidine 20 mg 02/22/20 21:00 02/23/20 08:30 Pepcid PO Not Given Q12HR IRINA Famotidine 20 mg 02/22/20 21:00 02/23/20 08:29 Pepcid SLOW IVP 20 mg Q12HR IRINA Administration Sodium Chloride 1,000 mls @ 120 mls/hr 02/22/20 14:18 02/23/20 07:20 Normal Saline 0.9% IV 1,000 mls .[id number] IRINA Administration Ceftriaxone Sodium 1 gm/ 100 mls @ 200 mls/hr 02/23/20 08:00 02/23/20 10:06 Sodium Chloride IVPB 100 mls Q24HR IRINA Administration Montelukast Sodium 10 mg 02/23/20 09:00 02/23/20 08:29 Singulair PO 10 mg QAM IRINA Administration Montelukast Sodium 10 mg 02/22/20 21:00 02/22/20 20:53 Singulair PO Not Given QPM IRINA - Exam General Appearance: NAD, awake alert Neck: no JVD Heart: RRR, no murmur, no gallops, no rubs Respiratory: CTAB, no wheezes, no rales, no ronchi Gastrointestinal: soft, non-tender, non-distended Gastrointestinal - other findings: reduced bowel sounds; midline incision with sutures, minimal surround serou Extremities: no edema Psychiatric: normal affect, normal behavior, A&O x 3 Hosp A/P - Plan #high grade small bowel obstruction with peritonitis due to adhesions -pending adhesion lysis and small bowel resection and anastamosis -currently on ice chips. advance diet as tolerated -pain control #uncomplicated UTI in context of SBO and signfiicant pain, difficult to determine of symptomatic or asymptomatic -urine culture growing e. coli -continue ceftriaxone. stop 02/23 #history of WPW s/p ablation -per patient, arrhythmia never recurred #asthma -preoperatively breathing and satting well on room air -albuterol inhaler q6h PRN SOB full code GI PPx: pantoprazole DVT PPx: SCDs
[2020-02-24] MEDS: Sodium Chloride 0.9% 1,000 ML IV SCH ×5 (01:20→20:57)
[2020-02-24 05:37] LABS: #Basophils 0.1 thou/uL (0.0-0.2); #Eosinphils 0.3 thou/uL (0.0-0.7); #Lymphocytes 1.8 thou/uL (1.20-3.40); #Monocytes 1.5 thou/uL (0.11-0.59); #Neutrophils 7.2 thou/uL (1.40-6.50); %Basophils 0.7 % (0.0-1.0); %Eosinophils 2.4 % (0.0-10.0); %Lymphocytes 16.7 % (21.0-51.0); %Monocytes 14.1 % (0.0-10.0); %Neutrophils 66.1 % (42.0-75.0); Hemoglobin 12.4 g/dL (12.0-16.0); Mean Corpuscular Hemoglobin 36.1 pg (27.0-31.0); Mean Platelet Volume 8.4 fL (7.4-10.4); Platelet Count 118 thou/uL (130-400); Platelet Morphology Comment Appears Decreased; RBC Distribution Width 12.7 % (11.5-14.5); Red Blood Cell (RBC) Count 3.43 mill/uL (4.20-5.40); White Blood Cell (WBC) Count 10.9 thou/uL (4.8-10.8)
[2020-02-24 05:42] LABS: Anion Gap 9 mmol/L (10-20); BUN (Urea Nitrogen) 10 mg/dL (9.8-20.1); Calc. Creatinine Clearance 140 mL/min (70-130); Calcium 7.8 mg/dL (7.8-10.44); Carbon Dioxide 23 mmol/L (22-29); Chloride 106 mmol/L (98-107); Estimated GFR-MDRD Greater than 90; Glucose 100 mg/dL (70-105); Magnesium 1.9 mg/dL (1.6-2.6); Potassium 3.9 mmol/L (3.5-5.1); Sodium 134 mmol/L (136-145)
[2020-02-24] MEDS: cefTRIAXone\\ROCEPHIN 1 GM in Sodium Chloride 0.9% 100 ML IVPB SCH (08:13)
[2020-02-24] MEDS: Montelukast Sodium 10 mg Tablet PO SCH ×2 (08:15→20:58)
[2020-02-24] MEDS: Famotidine 20 MG TAB PO SCH ×2 (08:15→20:58)
[2020-02-24] MEDS: Famotidine/PF 20 mg/2ml Vial SLOW IVP SCH ×2 (08:16→21:43)
[2020-02-24] MEDS: Enoxaparin Sodium 40 MG/0.4 ML SYRINGE SC SCH (10:09)
--- NOTE | 2020-02-24 10:45 | PRG ---
DATE OF SERVICE: 02/24/2020 SUBJECTIVE: Ms. Fermin is doing well. She tolerated her NG tubing. She denies any nausea. She is passing some gas. OBJECTIVE: VITAL SIGNS: She is afebrile. Vital signs are stable. ABDOMEN: Soft, less distended. She has occasional bowel sounds. Her midline wound is healing well. LABORATORY DATA: White blood cell count is 10. Bandemia has resolved. Sodium is 134, potassium is 3.9, and creatinine is 0.61. ASSESSMENT: Postoperative day 2 exploratory laparotomy, lysis of adhesions. PLAN: Try clear liquids. Encouraged ambulation. Decrease IV fluids. Job ID: [id number]
--- NOTE | 2020-02-24 16:58 | PDOC.HOSPP ---
- Subjective Encounter Date: 02/24/20 Encounter Time: 08:00 Subjective: no overnight events. This morning, midline incision pain improved, worsened by change in position. low volume serous drainage from inferior part of incision, now with clean overlying dressing. Self administering TERRAZZO ROLLER as preventive measure rather than treatment of pain. tolerating clear liquid diet well - Objective Vital Signs & Weight: Vital Signs (12 hours) Temp Pulse Resp BP Pulse Ox 02/24/20 16:28 100.9 F H 111 H 18 119/68 94 L 02/24/20 12:02 99.8 F H 115 H 18 105/53 L 91 L 02/24/20 08:00 100.0 F H 110 H 14 119/81 95 Weight Admit Weight 180 lb Weight 181 lb 4.8 oz I&O: 02/23/20 02/24/20 02/25/20 06:59 06:59 06:59 Intake Total 510 1560 1300 Output Total 740 0 Balance -230 1560 1300 Result Diagrams: 02/24/20 04:52 02/24/20 04:52 Hospitalist ROS - Review of Systems Constitutional: reports: fever. denies: chills, sweats, weakness, malaise Respiratory: denies: cough, dry, shortness of breath, pleuritic pain, sputum Cardiovascular: denies: chest pain, palpitations Gastrointestinal: reports: constipation. denies: nausea, vomiting, abdominal pain, diarrhea Genitourinary: denies: hematuria - Medication Medications: Active Medications Generic Name Dose Route Start Last Admin Trade Name Freq PRN Reason Stop Dose Admin Enoxaparin Sodium 40 mg 02/23/20 09:00 02/24/20 10:09 Lovenox SC 40 mg 0900 IRINA Administration Famotidine 20 mg 02/22/20 21:00 02/24/20 08:15 Pepcid PO 20 mg Q12HR IRINA Administration Famotidine 20 mg 02/22/20 21:00 02/24/20 08:16 Pepcid SLOW IVP Not Given Q12HR IRINA Hydromorphone HCl 0 mg 02/22/20 13:40 02/24/20 06:43 Dilaudid Cadd IVPB 10 mg INF PRN Administration Pain Sodium Chloride 1,000 mls @ 70 mls/hr 02/24/20 10:32 02/24/20 16:26 Normal Saline 0.9% IV 1,000 mls .[id number] IRINA Administration Montelukast Sodium 10 mg 02/23/20 09:00 02/24/20 08:15 Singulair PO 10 mg QAM IRINA Administration Montelukast Sodium 10 mg 02/22/20 21:00 02/23/20 22:16 Singulair PO Not Given QPM IRINA - Exam General Appearance: NAD, awake alert Eye: PERRL Neck: no JVD Heart: RRR, no murmur, no gallops, no rubs Respiratory: CTAB, no wheezes, no rales, no ronchi Gastrointestinal: soft, non-tender, non-distended Gastrointestinal - other findings: mild tenderness near incision site. wound c/d /i Extremities: no edema Psychiatric: normal affect, normal behavior, A&O x 3 Hosp A/P - Plan #early postop fever -POD 2 100.9F despite being on antibiotics; likely inflammatory due to extensive surgery -conitnue to follow; if febrile POD3, will carry out infectious workup #high grade small bowel obstruction with peritonitis due to adhesions -POD 2 s/p adhesion lysis and small bowel resection and anastamosis -tolerating clear liquid diet well -currently using TERRAZZO ROLLER as preventive rather than pain treatment measure -pain control as per anesthesiology and surgery; consider transition to oral medications if continues to PO tolerate well #uncomplicated UTI in context of SBO and signfiicant pain, difficult to determine of symptomatic or asymptomatic -urine culture growing e. coli -completed 3 day treatment; stopped ceftriaxone #history of WPW s/p ablation -per patient, arrhythmia never recurred #asthma -preoperatively breathing and satting well on room air -albuterol inhaler q6h PRN SOB full code GI PPx: pantoprazole DVT PPx: SCDs
[2020-02-24] MEDS ORDERED: Acetaminophen 650 MG/20.3 ML UDCUP PO PRN (17:11)
[2020-02-24] MEDS: diphenhydrAMINE 25 MG CAP PO PRN (21:55)
[2020-02-25 06:11] LABS: Anion Gap 7 mmol/L (10-20); BUN (Urea Nitrogen) 4 mg/dL (9.8-20.1); Calc. Creatinine Clearance 161 mL/min (70-130); Calcium 7.9 mg/dL (7.8-10.44); Carbon Dioxide 28 mmol/L (22-29); Chloride 103 mmol/L (98-107); Estimated GFR-MDRD Greater than 90; Glucose 93 mg/dL (70-105); Potassium 3.2 mmol/L (3.5-5.1); Sodium 135 mmol/L (136-145)
[2020-02-25 06:55] LABS: Band 4 % (5-11); Eosinophils 1 % (0-10); Lymphocytes 17 % (21-51); MDiff Complete? YES; Mean Corpuscular HGB CONC 35.1 g/dL (32.0-36.0); Mean Corpuscular Hemoglobin 35.5 pg (27.0-31.0); Mean Platelet Volume 8.4 fL (7.4-10.4); Monocytes 14 % (0-10); Neutrophil 64 % (42-75); Platelet Count 116 thou/uL (130-400); Platelet Morphology Comment Appears Decreased; RBC Distribution Width 12.2 % (11.5-14.5); Red Blood Cell (RBC) Count 3.38 mill/uL (4.20-5.40); White Blood Cell (WBC) Count 8.1 thou/uL (4.8-10.8)
[2020-02-25] MEDS ORDERED: Potassium Chloride 40 MEQ in Premix Bag 1 BAG IVPB SCH (08:15)
[2020-02-25] MEDS: Famotidine 20 MG TAB PO SCH ×2 (09:50→21:55)
[2020-02-25] MEDS: Montelukast Sodium 10 mg Tablet PO SCH ×2 (09:50→21:55)
[2020-02-25] MEDS: Famotidine/PF 20 mg/2ml Vial SLOW IVP SCH ×2 (09:50→21:02)
[2020-02-25] MEDS ORDERED: HYDROcodone/Acetaminophen 7.5/325 mg Tablet PO PRN (10:05)
[2020-02-25] MEDS ORDERED: Fentanyl 100 MCG/2 ML VIAL SLOW IVP PRN ×2 (10:05)
--- NOTE | 2020-02-25 10:16 | PRG ---
DATE OF SERVICE: 02/25/2020 SUBJECTIVE: Ms. Fermin is doing well. She is passing gas. She has had a few bowel movements. She tolerated the clear liquids without difficulty. Denies nausea or vomiting. OBJECTIVE: VITAL SIGNS: She is afebrile. Vital signs are stable. ABDOMEN: Soft. Her wound is healing well. She has active bowel sounds. ASSESSMENT: Postop day 2 exploratory laparotomy, lysis of adhesions, small bowel resection. PLAN: Advance to full liquid diet. Hep-lock fluids. Discontinue PANTS BUSHELER. Start oral pain control. Likely home tomorrow. Job ID: [id number]
[2020-02-25] MEDS: Enoxaparin Sodium 40 MG/0.4 ML SYRINGE SC SCH (10:29)
[2020-02-25] MEDS: Potassium Chloride 20 MEQ in Premix Bag 1 BAG IVPB SCH ×5 (10:30→16:24)
[2020-02-25] MEDS: HYDROcodone/Acetaminophen 7.5/325 mg Tablet PO PRN ×2 (13:04→19:39)
[2020-02-25] MEDS ORDERED: Potassium Chloride 40 MEQ in Sodium Chloride 0.9% 500 ML IVPB SCH (15:45)
[2020-02-25] MEDS: diphenhydrAMINE 25 MG CAP PO PRN (21:55)
--- NOTE | 2020-02-25 22:09 | PDOC.HOSPP ---
- Subjective Encounter Date: 02/25/20 Encounter Time: 11:00 Subjective: no overnight events. This morning, feeling well, pain well controlled, and tolerating full liquid. Has no complaints. - Objective Vital Signs & Weight: Vital Signs (12 hours) Temp Pulse Resp BP Pulse Ox 02/25/20 19:50 98 02/25/20 19:29 98.4 F 98 16 112/73 98 02/25/20 16:00 97.9 F 93 18 119/82 98 02/25/20 11:19 99.0 F 93 18 119/71 98 Weight Admit Weight 180 lb Weight 181 lb 4.8 oz I&O: 02/24/20 02/25/20 02/26/20 06:59 06:59 06:59 Intake Total 1560 2740 1585 Output Total 0 Balance 1560 2740 1585 Result Diagrams: 02/25/20 05:23 02/25/20 05:23 Hospitalist ROS - Review of Systems Constitutional: reports: fever. denies: chills, sweats, weakness, malaise, other Respiratory: denies: cough, dry, shortness of breath, hemoptysis, SOB with excertion, pleuritic pain, sputum, wheezing, other Cardiovascular: denies: chest pain, palpitations, orthopnea, paroxysmal noc. dyspnea, edema, light headedness, other Gastrointestinal: denies: nausea, vomiting, abdominal pain, diarrhea, constipation, melena, hematochezia, other Genitourinary: denies: dysuria, frequency, incontinence, hematuria - Medication Medications: Active Medications Generic Name Dose Route Start Last Admin Trade Name Freq PRN Reason Stop Dose Admin Acetaminophen 650 mg 02/24/20 17:11 02/25/20 09:49 Tylenol Elixir PO 650 mg Q6H PRN Administration Fever > 101 Hydrocodone Bitart/Acetaminophen 2 tab 02/25/20 10:05 02/25/20 19:39 Lapoint 7.5/325 PO 2 tab Q6H PRN Administration Moderate Pain (4-6) Diphenhydramine HCl 25 mg 02/22/20 12:12 02/25/20 21:55 Benadryl PO 25 mg Q3H PRN Administration Itching Enoxaparin Sodium 40 mg 02/23/20 09:00 02/25/20 10:29 Lovenox SC 40 mg 0900 IRINA Administration Famotidine 20 mg 02/22/20 21:00 02/25/20 21:55 Pepcid PO 20 mg Q12HR IRINA Administration Famotidine 20 mg 02/22/20 21:00 02/25/20 21:02 Pepcid SLOW IVP Not Given Q12HR IRINA Fentanyl 50 mcg 02/25/20 10:05 02/25/20 15:22 Sublimaze SLOW IVP 50 mcg Q2H PRN Administration Moderate to Severe Pain (6-10) Montelukast Sodium 10 mg 02/23/20 09:00 02/25/20 09:50 Singulair PO 10 mg QAM IRINA Administration Montelukast Sodium 10 mg 02/22/20 21:00 02/25/20 21:55 Singulair PO 10 mg QPM IIRNA Administration - Exam General Appearance: NAD, awake alert ENT: moist mucosa Neck: no JVD Heart: RRR, no murmur, no gallops, no rubs Respiratory: CTAB, no wheezes, no rales, no ronchi, normal chest expansion Gastrointestinal: soft, non-tender, non-distended, diminished bowl sounds Gastrointestinal - other findings: midline incision c/d/i Extremities: no edema Psychiatric: normal affect, normal behavior, A&O x 3 Hosp A/P - Plan #early postop fever (resolved) -last febrile episode 02/23 #high grade small bowel obstruction with peritonitis due to adhesions -POD 3 s/p adhesion lysis and small bowel resection and anastamosis -tolerating full liquid diet well -pain control as per anesthesiology and surgery; transitioned to oral pain medication #uncomplicated UTI in context of SBO and signfiicant pain, difficult to determine of symptomatic or asymptomatic -urine culture growing e. coli -completed 3 day treatment; stopped ceftriaxone #history of WPW s/p ablation -per patient, arrhythmia never recurred #asthma -preoperatively breathing and satting well on room air -albuterol inhaler q6h PRN SOB full code GI PPx: pantoprazole DVT PPx: SCDs expected DC 02/25
[2020-02-26] MEDS: HYDROcodone/Acetaminophen 7.5/325 mg Tablet PO PRN ×4 (03:22→23:27)
[2020-02-26 05:32] LABS: Magnesium 1.5 mg/dL (1.6-2.6); Potassium 3.5 mmol/L (3.5-5.1)
[2020-02-26] MEDS: Famotidine 20 MG TAB PO SCH ×2 (09:11→20:55)
[2020-02-26] MEDS: Enoxaparin Sodium 40 MG/0.4 ML SYRINGE SC SCH (09:11)
[2020-02-26] MEDS: Montelukast Sodium 10 mg Tablet PO SCH ×2 (09:12→20:55)
[2020-02-26] MEDS: Famotidine/PF 20 mg/2ml Vial SLOW IVP SCH ×2 (09:12→20:56)
--- NOTE | 2020-02-26 11:58 | PRG ---
DATE OF SERVICE: 02/26/2020 SUBJECTIVE: Ms. Fermin is doing well today. Tolerated the full liquids without difficulty. She is ambulatory. OBJECTIVE: VITAL SIGNS: She is afebrile. Vital signs are stable. SKIN: Her wound is healing well. There is some surrounding ecchymosis but no infection. ASSESSMENT: Stable, status post exploratory laparotomy for small bowel obstruction. She underwent short small-bowel segment resection and anastomosis. PLAN: I sent prescriptions for hydrocodone and Zofran over to [facility] on [address]. I suspect she will be ready for discharge tomorrow. Job ID: [id number]
[2020-02-26] MEDS: diphenhydrAMINE 25 MG CAP PO PRN (23:27)
[2020-02-27 04:33] VITALS: TEMP 98.1
[2020-02-27 08:09] VITALS: BP 121/79
[2020-02-27] MEDS: HYDROcodone/Acetaminophen 7.5/325 mg Tablet PO PRN (08:28)
[2020-02-27] MEDS: Famotidine/PF 20 mg/2ml Vial SLOW IVP SCH (08:29)
[2020-02-27] MEDS: Famotidine 20 MG TAB PO SCH (08:29)
[2020-02-27] MEDS: Enoxaparin Sodium 40 MG/0.4 ML SYRINGE SC SCH (08:29)
[2020-02-27] MEDS ORDERED: Potassium Chloride 20 MEQ TAB PO SCH (09:00)
[2020-02-27] MEDS ORDERED: Magnesium Oxide 400 MG TAB PO SCH (09:00)
--- NOTE | 2020-02-27 14:05 | DIS ---
DATE OF ADMISSION: 02/22/2020 DATE OF DISCHARGE: 02/27/2020 DISCHARGE DIAGNOSIS: Small bowel obstruction. PROCEDURE PERFORMED: Exploratory laparotomy, small-bowel resection. HOSPITAL COURSE: The patient was admitted, General Surgery was consulted. After admission, she was taken to the operating room. She had an extensive lysis of adhesions, small-bowel resection and anastomosis. Postoperatively, she has done well. Pain is controlled on p.o. medications. She is tolerating a regular diet. She is discharged home on hydrocodone and Zofran. She will follow up with Dr. Colon in 2 weeks. Job ID: [id number]
== END 2020-02-27 10:45 | disposition home or self-care (01) | DRG 329 ==
LOC: ERS 22:01 → SJJU 02-22 00:27
PROVIDERS: ADMIT Internal Medicine; ATTEND Internal Medicine
PROC: 0DB80ZZ Excision of Small Intestine, Open Approach (ICD-10-PCS; principal; 2020-02-22)
PROC: 0DN80ZZ Release Small Intestine, Open Approach (ICD-10-PCS; 2020-02-22)
PROC: 3E0M05Z Introduction of Adhesion Barrier into Peritoneal Cavity, Open Approach (ICD-10-PCS; 2020-02-22)
DX: K56.50 Intestinal adhesions [bands], unspecified as to partial versus complete obstruction (principal); K65.9 Peritonitis, unspecified; N39.0 Urinary tract infection, site not specified; J45.909 Unspecified asthma, uncomplicated; I45.6 Pre-excitation syndrome; F41.9 Anxiety disorder, unspecified; B96.20 Unspecified Escherichia coli [E. coli] as the cause of diseases classified elsewhere; Z90.710 Acquired absence of both cervix and uterus; Z90.721 Acquired absence of ovaries, unilateral; Z88.5 Allergy status to narcotic agent; Z88.6 Allergy status to analgesic agent
CPT/HCPCS: 36415; 36416; 71045; 74177; 80048; 80053; 81003; 81015; 83605; 83690; 83735; 84132; 85025; 87077; 87086; 87186; 88307; 94640; 96365; 96375; C9113; J0694; J0696; J1100; J1170; J1200; J1650; J2001; J2405; J2543; J2704; J3010; J3475; J3480; J3490; J7050; Q0163; Q9967; S0028

== ENCOUNTER 2020-03-14 13:18 | Emergency (ER) | payer SELFPAY ==
[2020-03-14] MEDS ORDERED: Ondansetron PF 4 MG/2 ML Vial ONE (14:31)
[2020-03-14] MEDS ORDERED: Fentanyl 100 MCG/2 ML VIAL ONE ×2 (14:31→16:19)
[2020-03-14 14:37] LABS: #Lymphocytes 1.5 thou/uL (1.20-3.40); #Monocytes 0.8 thou/uL (0.11-0.59); #Neutrophils 4.5 thou/uL (1.40-6.50); %Basophils 0.6 % (0.0-1.0); %Eosinophils 0.2 % (0.0-10.0); %Lymphocytes 22.1 % (21.0-51.0); %Monocytes 11.4 % (0.0-10.0); %Neutrophils 65.8 % (42.0-75.0); Hemoglobin 15.7 g/dL (12.0-16.0); Mean Corpuscular HGB CONC 33.3 g/dL (32.0-36.0); Mean Corpuscular Hemoglobin 33.4 pg (27.0-31.0); Mean Platelet Volume 7.6 fL (7.4-10.4); Platelet Count 269 thou/uL (130-400); RBC Distribution Width 12.7 % (11.5-14.5); White Blood Cell (WBC) Count 6.9 thou/uL (4.8-10.8)
--- NOTE | 2020-03-14 14:49 | RAD ---
CHEST 1 VIEW: Date: 03/14/2020 HISTORY: Nausea and vomiting. COMPARISON: 02/22/2020. FINDINGS: Heart size is within normal limits. No confluent pneumonia, overt edema, or pleural effusion. There i s a slightly irregular-shaped right scapular acromion, but this appears to be stable from prior exam. No confluent pneumonia, acute edema, or other active process. IMPRESSION: No significant acute intrathoracic disease. Overall stable from prior study. No evidence for pneumoni a. POS: [facility]
[2020-03-14 14:56] LABS: Bacteria/HPF 4+ HPF (None Seen); Bilirubin 1+ (Negative); Blood, Urine Trace (Negative); Clarity Turbid (Clear); Glucose, Urine (Dipstick) Normal (Negative); Leukocyte 500 Leu/uL (Negative); Nitrite 2+ (Negative); Protein, Urine (Dipstick) 100 mg/dL (Neg-Trace); Squamous Epithelial 0-3 HPF (0-3); WBC/HPF Greater than 50 HPF (0-3)
[2020-03-14 14:58] LABS: ALT (SGPT) 24 U/L (8-55); AST (SGOT) 42 U/L (5-34); Albumin 3.6 g/dL (3.5-5.0); Alkaline Phosphatase 123 U/L (40-110); Anion Gap 23 mmol/L (10-20); BUN (Urea Nitrogen) 4 mg/dL (9.8-20.1); Bilirubin, Total 2.5 mg/dL (0.2-1.2); Calc. Creatinine Clearance 0 mL/min (70-130); Calcium 9.4 mg/dL (7.8-10.44); Carbon Dioxide 17 mmol/L (22-29); Chloride 102 mmol/L (98-107); Estimated GFR-MDRD 84; Globulin 3.9 g/dL (2.4-3.5); Glucose 150 mg/dL (70-105); Lipase 33 U/L (8-78); Potassium 3.6 mmol/L (3.5-5.1); Protein, Total 7.5 g/dL (6.0-8.3); Sodium 138 mmol/L (136-145)
[2020-03-14] MEDS ORDERED: cefTRIAXone\\ROCEPHIN 2 GM VIAL ONE (15:21)
--- NOTE | 2020-03-14 16:19 | CT ---
ABDOMEN AND PELVIC CT SCAN WITH IV CONTRAST: History: Abdominal pain, recent surgery three weeks ago for small bowel obstruction. Comparison: 02-21-2020 FINDINGS: Minimal linear stranding in the lung bases, possibly subsegmental atelectasis or mild chronic change. Prominent fatty changes in the liver. The gallbladder appears unremarkable. No significant ductal di latation. Pancreas and spleen appear within normal limits. 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 Small scattered retroperitoneal lymph nodes without evidence for significant lymphadenopathy. Stable nonobstructing bilateral renal calculi. Post-surgical anastomic changes in the right upper quadrant with some minimal surrounding nonspecific mesenteric fat stranding. In the anterior inferior abdomen and upper pelvis there is some mesenteric fat stranding as well as some minimal intraperitoneal fluid which might be slightly loculated. In addition there is a 6.1 x 7.2 cm diameter thin walled loculate d fluid collection in the pelvis posterior to the urinary bladder and anterior to the rectum, evidenc e for a post-operative fluid collection. There is no evidence of gas. I would favor this being a sero ma. The urinary bladder is almost completely empty. No evidence for bowel obstruction. IMPRESSION: 1. Thin walled fluid collection in the pelvis without evidence for gas, probably a post-operative ser mina. 2. Minimal nonspecific fat stranding and some intraperitoneal fluid in the inferior anterior abdomen and upper anterior pelvis. 3. Post-operative anastomotic changes in the right upper quadrant with some minimal scattered adjacen t fat stranding. 4. Nonobstructing bilateral renal calculi. 5. Fatty changes of the liver. 6. Dilated tortuous splenic vein with evidence for splenorenal shunt. 7. Other findings as above. POS: [facility]
== END 2020-03-14 16:45 | disposition home or self-care (01) ==
LOC: ERS 13:18
DX: G89.18 Other acute postprocedural pain (principal); R10.32 Left lower quadrant pain; N39.0 Urinary tract infection, site not specified; N94.89 Other specified conditions associated with female genital organs and menstrual cycle; J44.9 Chronic obstructive pulmonary disease, unspecified; I49.9 Cardiac arrhythmia, unspecified; G20 Parkinson's disease; Z79.899 Other long term (current) drug therapy
CPT/HCPCS: 36415; 71045; 74177; 80053; 81003; 81015; 83690; 84484; 85025; 87077; 87086; 87186; 93005; 96361; 96365; 96375; 96376; J0696; J2405; J3010; Q9967

== ENCOUNTER 2025-07-14 22:32 | Inpatient (IN) | payer SELFPAY ==
[2025-07-14 23:22] LABS: #Basophils 0.08 10x3/uL (0.0-0.2); #Eosinophils 0.22 10x3/uL (0.0-0.7); #Monocytes 0.48 10x3/uL (0.11-0.59); #Neutrophils 1.96 10x3/uL (1.40-6.50); %Basophils 1.3 % (0.0-1.0); %Eosinophils 3.6 % (0.0-10.0); %Lymphocytes 54.6 % (21.0-51.0); %Monocytes 7.9 % (0.0-10.0); %Neutrophils 32.4 % (42.0-75.0); Hematocrit 45.4 % (36.0-47.0); Hemoglobin 16.4 g/dL (12.0-16.0); Mean Corpuscular Hemoglobin 33.6 pg (27.0-31.0); Mean Corpuscular Volume 93.0 fL (78.0-98.0); Platelet Count 203 10x3/uL (130-400); Red Blood Cell (RBC) Count 4.88 mill/uL (4.20-5.40); White Blood Cell (WBC) Count 6.06 10x3/uL (4.8-10.8)
[2025-07-14] MEDS ORDERED: Magnesium 2 GM/50 ML BAG (IN WATER) ONE (23:23)
[2025-07-14 23:37] LABS: Albumin 3.7 g/dL (3.1-4.5); Anion Gap 20 mmol/L (10-20); BUN (Urea Nitrogen) 6 mg/dL (9.8-20.1); Bilirubin, Total 0.8 mg/dL (0.3-1.2); Calc. Creatinine Clearance 0 mL/min (70-130); Calcium 8.4 mg/dL (7.8-10.44); Carbon Dioxide 21 mmol/L (22-29); Chloride 106 mmol/L (98-107); Globulin 3.7 g/dL (2.4-3.5); Glucose 185 mg/dL (70-105); Potassium 3.7 mmol/L (3.5-5.1); Salicylate Less than 8.0 mg/dL (Less than 8.0); Sodium 143 mmol/L (136-145)
[2025-07-14 23:38] LABS: ALT (SGPT) 26 U/L (Less than 34); AST (SGOT) 51 U/L (11-34); Alkaline Phosphatase 91 U/L (40-110)
[2025-07-14 23:59] LABS: Magnesium 1.4 mg/dL (1.6-2.6)
[2025-07-15 00:12] LABS: Acetaminophen Less than 10 mcg/mL (Less than 10); CK (CPK) 161 U/L (29-168); Salicylate Less than 8.0 mg/dL (Less than 8.0)
[2025-07-15] MEDS ORDERED: Acetaminophen 325 MG TAB PO PRN (03:38)
[2025-07-15] MEDS ORDERED: Calcium Carbonate 500 MG ChewTAB PO PRN (03:38)
[2025-07-15] MEDS ORDERED: Electrolyte Replacement Protocol 1 EACH FS SCH (03:45)
[2025-07-15 04:59] VITALS: BMI 31.5
[2025-07-15] MEDS: Potassium Chloride 20 MEQ in Premix 1 BAG IVPB SCH (05:31)
[2025-07-15] MEDS: Magnesium 2 GM/50 ML(in water) 2 GM in Premix 1 BAG IVPB SCH (05:32)
[2025-07-15] MEDS: Palonosetron HCl 0.25 MG in Sodium Chloride 0.9% 50 ML IVPB SCH (05:32)
[2025-07-15] MEDS: Famotidine/PF 20 mg/2ml Vial SLOW IVP SCH (09:20)
[2025-07-15 09:58] LABS: Cocaine Metabolite Screen Negative (Negative); THC/Cannabinoid Screen Negative (Negative); Tricyclic Screen Negative (Negative)
[2025-07-15 15:34] LABS: Anion Gap 12 mmol/L (10-20); BUN (Urea Nitrogen) 5 mg/dL (9.8-20.1); Calc. Creatinine Clearance 156 mL/min (70-130); Calcium 7.8 mg/dL (7.8-10.44); Carbon Dioxide 28 mmol/L (22-29); Chloride 103 mmol/L (98-107); Glucose 117 mg/dL (70-105); Potassium 4.5 mmol/L (3.5-5.1); Sodium 138 mmol/L (136-145)
[2025-07-15 15:36] LABS: Magnesium 2.1 mg/dL (1.6-2.6)
[2025-07-15 16:13] VITALS: BP 132/98
[2025-07-16 05:02] LABS: #Basophils 0.04 10x3/uL (0.0-0.2); #Eosinophils 0.34 10x3/uL (0.0-0.7); #Monocytes 0.82 10x3/uL (0.11-0.59); #Neutrophils 2.85 10x3/uL (1.40-6.50); %Basophils 0.7 % (0.0-1.0); %Eosinophils 6.0 % (0.0-10.0); %Lymphocytes 28.5 % (21.0-51.0); %Monocytes 14.4 % (0.0-10.0); %Neutrophils 50.2 % (42.0-75.0); Hematocrit 40.1 % (36.0-47.0); Hemoglobin 13.4 g/dL (12.0-16.0); Mean Corpuscular Hemoglobin 32.9 pg (27.0-31.0); Mean Corpuscular Volume 98.5 fL (78.0-98.0); Platelet Count 142 10x3/uL (130-400); Red Blood Cell (RBC) Count 4.07 mill/uL (4.20-5.40); White Blood Cell (WBC) Count 5.68 10x3/uL (4.8-10.8)
[2025-07-16 05:22] LABS: ALT (SGPT) 18 U/L (Less than 34); AST (SGOT) 30 U/L (11-34); Albumin 3.2 g/dL (3.1-4.5); Alkaline Phosphatase 87 U/L (40-110); Anion Gap 10 mmol/L (10-20); BUN (Urea Nitrogen) 4 mg/dL (9.8-20.1); Bilirubin, Total 1.5 mg/dL (0.3-1.2); Calc. Creatinine Clearance 162 mL/min (70-130); Calcium 7.8 mg/dL (7.8-10.44); Carbon Dioxide 27 mmol/L (22-29); Chloride 101 mmol/L (98-107); Globulin 3.0 g/dL (2.4-3.5); Glucose 109 mg/dL (70-105); Magnesium 1.6 mg/dL (1.6-2.6); Potassium 3.7 mmol/L (3.5-5.1); Sodium 134 mmol/L (136-145)
[2025-07-16] MEDS: Magnesium 2 GM/50 ML(in water) 2 GM in Premix 1 BAG IVPB SCH (10:15)
[2025-07-16] MEDS: Mometasone 200 MCG/Formoterol 5 MCG 120 PUFF INHALER INH SCH ×2 (10:52→18:21)
[2025-07-16] MEDS: predniSONE 20 MG TAB PO SCH (13:28)
[2025-07-16] MEDS ORDERED: Albuterol 2.5 MG (3 mL) NEB NEB PRN (17:57)
[2025-07-16 21:50] VITALS: TEMP 99
[2025-07-17] MEDS ORDERED: predniSONE 20 MG TAB PO SCH (08:00)
== END 2025-07-16 20:40 | disposition short-term general hospital (02) | DRG 918 ==
LOC: ERS 22:32 → IMCU/EMU 07-15 03:03
PROVIDERS: ADMIT Student in an Organized Health Care Education/Training Program; ATTEND Emergency Medicine
PROC: HZ2ZZZZ Detoxification Services for Substance Abuse Treatment (ICD-10-PCS; principal; 2025-07-15)
DX: T43.222A Poisoning by selective serotonin reuptake inhibitors, intentional self-harm, initial encounter (principal); J45.51 Severe persistent asthma with (acute) exacerbation; I48.91 Unspecified atrial fibrillation; J42 Unspecified chronic bronchitis; I45.6 Pre-excitation syndrome; F32.A Depression, unspecified; F10.220 Alcohol dependence with intoxication, uncomplicated; E83.42 Hypomagnesemia; Z98.890 Other specified postprocedural states; Z90.710 Acquired absence of both cervix and uterus; Z90.49 Acquired absence of other specified parts of digestive tract; Z90.721 Acquired absence of ovaries, unilateral; Z91.048 Other nonmedicinal substance allergy status; Z88.1 Allergy status to other antibiotic agents; Z91.018 Allergy to other foods; Z88.5 Allergy status to narcotic agent; Z91.040 Latex allergy status; Z88.2 Allergy status to sulfonamides; Z91.51 Personal history of suicidal behavior
CPT/HCPCS: 36415; 71045; 80053; 80143; 80179; 80306; 80307; 82550; 83735; 84100; 85025; 93005; 94640; 96365; 96367; 96375; J1308; J2060; J2469; J3411; J3475; J3480; J7120; J7512; J7620